=== PATIENT | female | born 1935 | race Caucasian/White ===

== ENCOUNTER 2016-08-20 18:25 | Emergency (ER) | payer BC ==
[2016-08-20 18:39] VITALS: BMI 24.7
[2016-08-20] MEDS ORDERED: morphine CARPU-JECT 4 MG/1 ML DISP.SYRIN IVPUSH ONE ×3 (19:30→21:30)
[2016-08-20] MEDS ORDERED: PANTOPRAZOLE SODIUM 80 MG in SODIUM CHLORIDE 100 ML IVPB SCH (19:30)
[2016-08-20] MEDS ORDERED: PANTOPRAZOLE SODIUM 40 MG in SODIUM CHLORIDE 100 ML IVPB ONE (19:30)
[2016-08-20 19:36] LABS: BASOPHIL 0.8 % (0-2.0); EOSINOPHIL 1.3 % (0-4.5); MCH 29.9 pg (25.7-33.7); MCHC 32.3 g/dl (32.0-36.0); MEAN CELL VOLUME 92.6 fl (80-96); NEUTROPHILS 63.1 % (42.8-82.8); RDW 14.4 % (11.6-15.6); WHITE BLOOD COUNT 8.5 K/mm3 (4.0-10.0)
[2016-08-20] MEDS ORDERED: morphine CARPU-JECT 4 MG/1 ML DISP.SYRIN ONE ×3 (19:37→21:43)
--- NOTE | 2016-08-20 19:37 | PDOC ---
History of Present Illness - General History Source: Patient Exam Limitations: No Limitations - History of Present Illness Initial Comments: 08/20/16 20:30 The patient is a 80 year old female with a significant past medical history of hypertension, HLD, bowel obstruction, hernias, gastritis, coronary artery disease s/p CABG, who presents to the ED with diffuse abdominal pain, abdominal bloating and chest discomfort. The patient states that in last few days that she's been feeling bloating with intermittent abdominal pain in the left upper quadrant. She started noticing dark stools as well. She is not on iron supplements or taking Pepto-Bismol. She started developing some nausea but denies vomiting. Patient states that 30 minutes prior to arrival, she started noticing pain in the left upper chest right at the insertion site of her pectoralis major. Denies any injuries or traumas or increased exertion. Denies shortness of breath. <Rafael Soriano - Last Filed: 08/20/16 23:13> - General History Source: Patient Exam Limitations: No Limitations <Nik Vargas - Last Filed: 08/21/16 02:16> - General Chief Complaint: Chest Pain Stated Complaint: CHEST PAIN SOB Time Seen by Provider: 08/20/16 18:32 Past History <Rafael Soriano - Last Filed: 08/20/16 23:13> - Past Medical History Cardiac Disorders: Yes ([place], STENT X 1 , BYPASS) GI Disorders: Yes (HERNIA) HTN: Yes Hypercholesterolemia: Yes Thyroid Disease: Yes - Surgical History Abdominal Surgery: Yes (hernia.) Cardiac Surgery: Yes Cholecystectomy: Yes - Immunization History Td Vaccination: Yes Immunization Up to Date: Yes - Psycho/Social/Smoking Cessation Hx Anxiety: No Suicidal Ideation: No Smoking Status: No Smoking History: Never smoked Number of Cigarettes Smoked Daily: 0 Hx Alcohol Use: No Drug/Substance Use Hx: No Substance Use Type: None Hx Substance Use Treatment: No <Nik Vargas - Last Filed: 08/21/16 02:16> - Past Medical History Allergies/Adverse Reactions: Allergies Allergy/AdvReac Type Severity Reaction Status Date / Time cortisone [Cortisone] Allergy Elevated Verified 03/31/15 07:45 Blood Pressure erythromycin base Allergy Rash Verified 03/31/15 07:45 [Erythromycin Base] Penicillins Allergy Rash Verified 03/31/15 07:45 Tetanus Vaccines and Toxoid Allergy Verified 03/31/15 07:45 [Tetanus] Home Medications: Ambulatory Orders Atorvastatin Ca [Lipitor] 40 mg PO HS 06/23/13 Levothyroxine [Synthroid -] 150 mcg PO DAILY 06/23/13 Valsartan [Diovan] 80 mg PO DAILY 06/23/13 Metoprolol Succinate [Toprol XL -] 50 mg PO DAILY #0 tab.sr.24h 06/29/13 Fenofibrate Nanocrystallized [Tricor] 48 mg PO DAILY 10/07/13 Aspirin [Ecotrin] 81 mg PO DAILY 03/31/15 Oxycodone HCl/Acetaminophen [Percocet 5/325 -] 1 tab PO Q6H #30 tablet 04/03/15 Review of Systems - Review of Systems Able to Perform ROS?: Yes Comments:: 08/20/16 20:30 GENERAL/CONSTITUTIONAL: No fever or chills. No weakness. HEAD, EYES, EARS, NOSE AND THROAT: No change in vision. No ear pain or discharge. No sore throat. CARDIOVASCULAR: + chest discomfort. No SOB. RESPIRATORY: No cough, wheezing, or hemoptysis. GASTROINTESTINAL: + abdominal pain. + nausea. No vomiting, diarrhea or constipation. GENITOURINARY: No dysuria, frequency, or change in urination. MUSCULOSKELETAL: No joint or muscle swelling or pain. No neck or back pain. SKIN: No rash NEUROLOGIC: No headache, vertigo, loss of consciousness, or change in strength/ sensation. ENDOCRINE: No increased thirst. No abnormal weight change. HEMATOLOGIC/LYMPHATIC: No anemia, easy bleeding, or history of blood clots. ALLERGIC/IMMUNOLOGIC: No hives or skin allergy. <Rafael Soriano - Last Filed: 08/20/16 23:13> *Physical Exam - Vital Signs Last Vital Signs Temp Pulse Resp BP Pulse Ox 98.2 F 70 24 183/78 99 08/20/16 19:12 08/20/16 18:31 08/20/16 18:31 08/20/16 18:31 08/20/16 19:12 - Physical Exam Comments: 08/20/16 20:31 GENERAL: Awake, alert, and fully oriented, in no acute distress HEAD: No signs of trauma EYES: PERRLA, EOMI, sclera anicteric, conjunctiva clear ENT: Auricles normal inspection, hearing grossly normal, nares patent, oropharynx clear without exudates. Moist mucosa NECK: Normal ROM, supple, no lymphadenopathy, JVD, or masses LUNGS: Breath sounds equal, clear to auscultation bilaterally. No wheezes, and no crackles HEART: Regular rate and rhythm, normal S1 and S2, no murmurs, rubs or gallops ABDOMEN: Abdominal distension appreciated. Diffuse abdominal discomfort but left upper quadrant tenderness. No guarding, no rebound. No masses. Dark stools. EXTREMITIES: Normal range of motion, no edema. No clubbing or cyanosis. No cords, erythema, or tenderness NEUROLOGICAL: Cranial nerves II through XII grossly intact. Normal speech, normal gait SKIN: Warm, Dry, normal turgor, no rashes or lesions noted. <Rafael Soriano - Last Filed: 08/20/16 23:13> - Vital Signs Last Vital Signs Temp Pulse Resp BP Pulse Ox 98.2 F 70 24 183/78 99 08/20/16 19:12 08/20/16 18:31 08/20/16 18:31 08/20/16 18:31 08/20/16 19:12 <Nik Vargas - Last Filed: 08/21/16 02:16> Heart Score/ECG Review #1 ECG reviewed & interpreted by me at: 18:40 08/20/16 23:54 NSR 73, Q wave III, TWI V1, V2, no std/jyoti, normal axis, normal intervals, QTC 425 msec <Nik Vargas - Last Filed: 08/21/16 02:16> ED Treatment Course - LABORATORY CBC & Chemistry Diagram: 08/20/16 19:00 08/20/16 20:37 - ADDITIONAL ORDERS Additional order review: Laboratory Results 08/20/16 08/20/16 08/20/16 19:40 19:00 19:00 INR 1.04 PTT (Actin FS) 29.0 Sodium Cancelled Potassium Cancelled Chloride Cancelled Carbon Dioxide Cancelled Anion Gap Cancelled BUN Cancelled Creatinine Cancelled Creat Clearance w eGFR Cancelled Random Glucose Cancelled Calcium Cancelled Magnesium Cancelled Total Bilirubin Cancelled AST Cancelled ALT Cancelled Alkaline Phosphatase Cancelled Creatine Kinase Cancelled Troponin I Cancelled B-Natriuretic Peptide Cancelled Total Protein Cancelled Albumin Cancelled Stool Occult Blood Negative 08/20/16 19:00 RBC 5.15 MCV 92.6 MCHC 32.3 RDW 14.4 Neutrophils % 63.1 Lymphocytes % 26.3 D Monocytes % 8.5 Eosinophils % 1.3 D Basophils % 0.8 - Medications Given in the ED: ED Medications Discontinued Medications Generic Name Dose Route Start Last Admin Trade Name Jes PRN Reason Stop Dose Admin Pantoprazole Sodium 40 mg/ 100 mls @ 200 mls/hr 08/20/16 19:30 08/20/16 19:48 Sodium Chloride IVPB 08/20/16 19:59 200 mls/hr ONCE ONE Administration Morphine Sulfate 4 mg 08/20/16 19:30 08/20/16 19:47 Morphine Injection - IVPUSH 08/20/16 19:31 4 mg ONCE ONE Administration Morphine Sulfate 4 mg 08/20/16 20:21 08/20/16 20:22 Morphine Injection - IVPUSH 08/20/16 20:22 4 mg ONCE ONE Administration <Rafael Soriano - Last Filed: 08/20/16 23:13> - LABORATORY CBC & Chemistry Diagram: 08/20/16 19:00 08/20/16 20:37 - RADIOLOGY Radiology Studies Ordered: Category Date Time Status CHEST X-RAY PORTABLE* [RAD] Stat Radiology 08/20/16 18:33 Taken <Nik Vargas - Last Filed: 08/21/16 02:16> Medical Decision Making - Medical Decision Making 08/20/16 21:[address] Becker (cardio). 08/20/16 22:[address] Becker. 08/20/16 22:[address] Mclaughlin (on-call on for Dr. Morales). 08/20/16 23:13 Paged [facility] for transfer of patient to adult ER. <Rafael Soriano - Last Filed: 08/20/16 23:13> - Critical Care Time Total Critical Care Time (minutes): 45 Critical Care Statement: The care of this patient involved high complexity decision making to prevent further life threatening deterioration of the patient 's condition and/or to evalute & treat vital organ system(s) failure or risk of failure. - Medical Decision Making 08/20/16 19:53 A portion of this note was documented by scribe services under my direction. I have reviewed the details of the note, within reason, and agree with the documentation with the following case summary and management plan written by me. Patient treated in the ED. Nursing notes are reviewed and incorporated into the medical decision-making. Vital signs reviewed. Peripheral IV access obtained by the nurse, laboratory studies are drawn and sent, reviewed and interpreted by myself. Vital Signs Temp Pulse Resp BP Pulse Ox 98.2 F 70 24 183/78 99 08/20/16 19:12 08/20/16 18:31 08/20/16 18:31 08/20/16 18:31 08/20/16 19:12 80 year old female with past medical history of hypertension, HLD, bowel obstruction, hernias, gastritis, coronary artery disease s/p CABG presents to the emergency department for diffuse abdominal pain, abdominal bloating and chest discomfort. The patient reports in last several days that she's been feeling bloating with intermittent abdominal pain in left upper quadrant. She started noticed dark stools. She is not on iron supplements or taking Pepto- Bismol. She started developing some nausea but denies vomiting. 30 minutes prior to arrival, patient started noticing pain in the left upper chest right at the insertion site of her pectoris major. Denies any injuries or traumas or increased exertion. Denies shortness of breath. The patient's chest pain is very unusual for cardiac disease. She is quite tender at her left pectoralis major toward the insertion site and I suspect that this is likely muscle skeletal. We'll send a troponin and obtain EKG. If workup is negative, the patient can be cleared from a cardiac perspective. I am more concerned about the patient's abdominal pain and bloating. She has dark stools on my exam is is concerning for upper GI bleed. Protonix bolus and drip was initiated. We'll obtain a CAT scan abdomen pelvis to rule out perforated ulcer. Patient should likely be admitted to the hospital for further evaluation. 08/20/16 23:53 CBC, BMP 08/20/16 19:00 08/20/16 20:37 CMP Sodium 142 mmol/L (136-145) 08/20/16 20:37 Potassium 4.1 mmol/L (3.5-5.1) 08/20/16 20:37 Chloride 112 mmol/L (98-107) H 08/20/16 20:37 Carbon Dioxide 22 mmol/L (21-32) 08/20/16 20:37 Anion Gap 8 (8-16) 08/20/16 20:37 BUN 30 mg/dL (7-18) H D 08/20/16 20:37 Creatinine 0.8 mg/dL (0.55-1.02) D 08/20/16 20:37 Creat Clearance w eGFR > 60 (>60) 08/20/16 20:37 Random Glucose 99 mg/dL (74-106) 08/20/16 20:37 Calcium 9.4 mg/dL (8.5-10.1) 08/20/16 20:37 Magnesium 2.0 mg/dL (1.8-2.4) 08/20/16 20:37 Total Bilirubin 0.4 mg/dL (0.2-1.0) D 08/20/16 20:37 AST 13 U/L (15-37) L D 08/20/16 20:37 ALT 24 U/L (12-78) 08/20/16 20:37 Alkaline Phosphatase 71 U/L (45-117) D 08/20/16 20:37 Creatine Kinase 75 IU/L (26-192) 08/20/16 20:37 Troponin I 2.28 ng/ml (0.00-0.05) H* 08/20/16 20:37 B-Natriuretic Peptide 366.68 pg/ml (5-450) 08/20/16 20:37 Total Protein 6.9 g/dl (6.4-8.2) D 08/20/16 20:37 Albumin 4.2 g/dl (3.4-5.0) D 08/20/16 20:37 Negative guiac. Chest xray reviewed. Atelectasis changes. CT abdomen and pelvis reviewed. No acute findings. Interestingly, the patient's troponin is 2.3 suggestive of an NSTEMI. It may be perhaps that the abdominal pain is a referred pain. Case was discussed with pick up Dr. Regalado (partner of Kathy), agrees with plan to aspirin and heparin. ASA and heparin bolus and drip ordered (pt already took baby asa this morning). Case discussed with Dr. Mclaughlin. Given that the patient has dark stools, abdominal bloating, and that the patient is being heparinized and the upcoming weekend with potential no immediate GI in house in case if the patient bleeds, Dr. Mclaughlin requests transfer to higher level of care. Case was discussed with Dr. Ordonez (cards fellow) at [facility] who accepts the patient under Dr. Antoine (attending) to the [facility] ER. 08/21/16 02:15 Patient's ECG was downloaded at [facility] (which was her former last name). However, the patient's ECG was not corrected and downloaded as such. Will contact the medical diagnostic radiographer regarding this matter. <Nik Vargas - Last Filed: 08/21/16 02:16> *DC/Admit/Observation/Transfer - Attestations Scribe Attestion: 08/20/16 20:31 Documentation prepared by Rafael Soriano, acting as biomedical scientist for Nik Vargas MD, MD. <Rafael Soriano - Last Filed: 08/20/16 23:13> - Transfer to Acute Care Facility Receiving Facility: [facility]. Accepting Physician:: Dr. Antoine <Nik Vargas - Last Filed: 08/21/16 02:16> Diagnosis at time of Disposition: NSTEMI (non-ST elevated myocardial infarction) - Discharge Dispostion Disposition: TRANSFER ACUTE CARE/OTHER HOSP Condition at time of disposition: Stable
[2016-08-20] MEDS ORDERED: PANTOPRAZOLE SODIUM 100 ML IVPB ONE (19:38)
[2016-08-20] MEDS ORDERED: PANTOPRAZOLE SODIUM 40 MG VIAL ONE (19:38)
[2016-08-20 19:57] LABS: INR 1.04 (0.82-1.09); PROTHROMBIN TIME (PATIENT) 11.4 SEC (9.98-11.88)
[2016-08-20 20:37] LABS: MEAN PLT VOLUME 9.5 fl (7.5-11.1); PLATELET COMMENT2 NO CLOTTING DETECTED; PLATELET COUNT 160 K/MM3 (134-434); PLATELET ESTIMATE ADEQUATE (NORMAL)
[2016-08-20] MEDS ORDERED: SODIUM CHLORIDE 500 ML IV STA (20:52)
[2016-08-20 21:09] LABS: ALBUMIN 4.2 g/dl (3.4-5.0); ANION GAP 8 (8-16); CALCIUM 9.4 mg/dL (8.5-10.1); CO2 22 mmol/L (21-32); CREATININE 0.8 mg/dL (0.55-1.02); GLUCOSE,RANDOM 99 mg/dL (74-106); SGOT/AST 13 U/L (15-37); SGPT/ALT 24 U/L (12-78)
[2016-08-20 21:24] LABS: ALK PHOS 71 U/L (45-117); BILIRUBIN,TOTAL 0.4 mg/dL (0.2-1.0); TOT PROT 6.9 g/dl (6.4-8.2)
[2016-08-20 21:27] LABS: TROPONIN I 2.28 ng/ml (0.00-0.05)
[2016-08-20] MEDS ORDERED: HEPARIN NA (PORCINE) 5,000 UNITS/ML 1ML VIAL IVPUSH PRN (23:34)
[2016-08-20] MEDS ORDERED: ASPIRIN 81 MG CHEWABLE TABLETS PO ONE (23:34)
[2016-08-20] MEDS ORDERED: HEPARIN NA (PORCINE) 5,000 UNITS/ML 1ML VIAL IVPUSH ONE (23:35)
[2016-08-20] MEDS ORDERED: HEPARIN - 25,000 UNIT in SODIUM CHLORIDE 495 ML IV SCH (23:45)
[2016-08-21] MEDS ORDERED: HEPARIN INFUSION - 500 ML IVPB ONE (00:01)
[2016-08-21] MEDS ORDERED: morphine CARPU-JECT 4 MG/1 ML DISP.SYRIN IVPUSH ONE (00:03)
[2016-08-21] MEDS ORDERED: morphine CARPU-JECT 4 MG/1 ML DISP.SYRIN ONE (00:08)
[2016-08-21 00:41] VITALS: BP 142/83; PULSE 78; TEMP 98.3
--- NOTE | 2016-08-21 16:21 | EKG ---
Test Reason : Blood Pressure : / mmHG Vent. Rate : 073 BPM Atrial Rate : 073 BPM P-R Int : 154 ms QRS Dur : 074 ms QT Int : 386 ms P-R-T Axes : 036 -12 047 degrees QTc Int : 425 ms POOR DATA QUALITY, INTERPRETATION MAY BE ADVERSELY AFFECTED SINUS RHYTHM WITH MARKED SINUS ARRHYTHMIA LOW VOLTAGE QRS CANNOT RULE OUT ANTERIOR INFARCT (CITED ON OR BEFORE 20-AUG-2016) ABNORMAL ECG WHEN COMPARED WITH ECG OF 31-MAR-2015 09:09, PREMATURE VENTRICULAR COMPLEXES ARE NO LONGER PRESENT Confirmed by EDMAR VALERIO MD ([id number]) on 08/21/2016 4:21:21 PM Referred By: Confirmed By:EDMAR VALERIO MD
== END 2016-08-21 00:21 | disposition short-term general hospital (02) ==
LOC: JER 18:25
PROC: 3E0337Z Introduction of Electrolytic and Water Balance Substance into Peripheral Vein, Percutaneous Approach (ICD-10-PCS; principal; 2016-08-20)
PROC: 3E033GC Introduction of Other Therapeutic Substance into Peripheral Vein, Percutaneous Approach (ICD-10-PCS; 2016-08-20)
PROC: 3E033NZ Introduction of Analgesics, Hypnotics, Sedatives into Peripheral Vein, Percutaneous Approach (ICD-10-PCS; 2016-08-20)
DX: I21.4 Non-ST elevation (NSTEMI) myocardial infarction (principal); I25.2 Old myocardial infarction; I11.9 Hypertensive heart disease without heart failure; Z95.1 Presence of aortocoronary bypass graft; Z95.5 Presence of coronary angioplasty implant and graft; E78.00 Pure hypercholesterolemia, unspecified; E03.9 Hypothyroidism, unspecified
CPT/HCPCS: 36415; 71010-TC; 74176-TC; 80053; 82272; 82550; 83735; 83880; 84484; 85025; 85610; 85730; 93005; 93010; 96361; 96365; 96375; 99285-25

== ENCOUNTER 2017-02-20 07:12 | Emergency (ER) | payer BC ==
[2017-02-20 07:20] VITALS: TEMP 97.8; BMI 24.7
[2017-02-20] MEDS ORDERED: OXYCODONE/APAP 5/325MG COMBO TABLET PO ONE (09:01)
[2017-02-20] MEDS ORDERED: OXYCODONE/APAP 5/325MG COMBO TABLET ONE (09:06)
--- NOTE | 2017-02-20 09:20 | PDOC ---
Attending Attestation - Resident Resident Name: Jw Flores - ED Attending Attestation I have performed the following: I have examined & evaluated the patient, The case was reviewed & discussed with the resident, I agree w/resident's findings & plan, Exceptions are as noted - HPI HPI: 02/20/17 09:17 81 yo female with recent admit for ACS ending with two stents a few months ago, now taking plavix. Presents with red, swollen, painful right wrist. - Physicial Exam PE: 02/20/17 09:19 Tendonitis vs cellulitis - Medical Decision Making 02/20/17 09:19 Labs and X-Ray, Pain control
[2017-02-20 09:46] LABS: BASOPHIL 0.6 % (0-2.0); EOSINOPHIL 0.9 % (0-4.5); MCH 30.4 pg (25.7-33.7); MCHC 33.1 g/dl (32.0-36.0); MEAN CELL VOLUME 91.7 fl (80-96); MEAN PLT VOLUME 7.1 fl (7.5-11.1); NEUTROPHILS 66.9 % (42.8-82.8); PLATELET COUNT 217 K/MM3 (134-434); RDW 14.5 % (11.6-15.6); WHITE BLOOD COUNT 8.5 K/mm3 (4.0-10.0)
--- NOTE | 2017-02-20 10:00 | PDOC ---
History of Present Illness - General Chief Complaint: Redness To Affected Area Stated Complaint: WRIST PAIN Time Seen by Provider: 02/20/17 07:56 - History of Present Illness Initial Comments: 02/20/17 09:55 81F with history of MD 6 months ago s/p stents and HTN here today complaining of pain in her right wrist. The pain started 48 hours ago, got better then started getting worse 24 hours ago. The pain is located at the dorsal aspect of her right wrist and has associated erythema, swelling and warmth. She says the pain is worse with movement but is able to make a fist. She denies nausea, vomiting, fevers and chills. She denies constipation, diarrhea and dysuria. Past History - Past Medical History Allergies/Adverse Reactions: Allergies Allergy/AdvReac Type Severity Reaction Status Date / Time cortisone [Cortisone] Allergy Elevated Verified 02/20/17 07:20 Blood Pressure erythromycin base Allergy Rash Verified 02/20/17 07:20 [Erythromycin Base] Penicillins Allergy Rash Verified 02/20/17 07:20 Tetanus Vaccines and Toxoid Allergy Verified 02/20/17 07:20 [Tetanus] Home Medications: Ambulatory Orders Atorvastatin Ca [Lipitor] 80 mg PO HS 02/20/17 Clopidogrel Bisulfate [Plavix -] 75 mg PO DAILY 02/20/17 Fenofibrate Nanocrystallized [Tricor] 48 mg PO DAILY 02/20/17 Levothyroxine [Synthroid -] 150 mcg PO DAILY 02/20/17 Metoprolol Tartrate 100 mg PO DAILY 02/20/17 Ondansetron [Ondansetron Odt] 8 mg PO BID PRN #10 tab.rapdis 02/20/17 Oxycodone HCl/Acetaminophen [Percocet 5-325 mg Tablet] 1 tab PO Q6H PRN #10 tablet MDD 4 02/20/17 Sulfamethoxazole/Trimethoprim [Bactrim Ds -] 1 tab PO BID #20 tablet 02/20/17 Cardiac Disorders: Yes ([place], STENT X 1 , BYPASS) GI Disorders: Yes (HERNIA) HTN: Yes Hypercholesterolemia: Yes Thyroid Disease: Yes - Surgical History Abdominal Surgery: Yes (hernia.) Cardiac Surgery: Yes (STENTS) Cholecystectomy: Yes - Immunization History Td Vaccination: Yes Immunization Up to Date: Yes - Psycho/Social/Smoking Cessation Hx Anxiety: No Suicidal Ideation: No Smoking Status: No Smoking History: Never smoked Number of Cigarettes Smoked Daily: 0 Hx Alcohol Use: No Drug/Substance Use Hx: No Substance Use Type: None Hx Substance Use Treatment: No *Physical Exam - Vital Signs Last Vital Signs Temp Pulse Resp BP Pulse Ox 97.8 F 71 18 169/59 97 02/20/17 07:17 02/20/17 07:17 02/20/17 07:17 02/20/17 07:17 02/20/17 07:17 - Physical Exam Comments: 02/20/17 10:42 Gen: Well nourished, in moderate distress, holding her right arm against her stomach CV: RRR, no murmurs rubs or gallops Lungs: Clear to auscultation bilaterally, normal work of breathing Right wrist: 4x4 cm area of swelling erythema, and warmth on dorsal aspect of wrist. Able to close fist and extend fingers. Able to flex wrist. Unable to fully extend wrist pain secondary to pain. Neuro: Alert, oriented, no focal deficits HEENT: Atraumatic normocephalic ED Treatment Course - LABORATORY CBC & Chemistry Diagram: 02/20/17 08:12 02/20/17 08:12 - Medications Given in the ED: ED Medications Discontinued Medications Generic Name Dose Route Start Last Admin Trade Name Freq PRN Reason Stop Dose Admin Oxycodone/Acetaminophen 1 combo 02/20/17 09:01 02/20/17 09:16 Percocet 5/325 - PO 02/20/17 09:02 1 combo ONCE ONE Administration Medical Decision Making - Medical Decision Making 02/20/17 11:28 Patient is a 81F with history of MD 6months ago, s/p stenting, here today complaining of wrist pain. Vital signs stable. Differential diagnosis includes, but is not limited to: cellulitis, tendonitis, and fracture. CBC and CMP normal. CRP elevated. Believe this to be cellulitis. Discharged with bactrim for 10 days, percocet and zofran for pain and nausea. *DC/Admit/Observation/Transfer Diagnosis at time of Disposition: Cellulitis Qualifiers: Site of cellulitis: extremity Site of cellulitis of extremity: upper extremity Laterality: right Qualified Code(s): L03.113 - Cellulitis of right upper limb - Discharge Dispostion Disposition: HOME Condition at time of disposition: Good Admit: No - Prescriptions Prescriptions: Sulfamethoxazole/Trimethoprim [Bactrim Ds -] 1 tab PO BID #20 tablet Oxycodone HCl/Acetaminophen [Percocet 5-325 mg Tablet] 1 tab PO Q6H PRN #10 tablet MDD 4 PRN Reason: Pain Ondansetron [Ondansetron Odt] 8 mg PO BID PRN #10 tab.rapdis PRN Reason: Nausea - Referrals Referrals: Jeremi Morales MD [Primary Care Provider] - Jeremi Rodrigues MD [Staff Physician] - - Patient Instructions Printed Discharge Instructions: DI for Cellulitis -- Adult Additional Instructions: Please follow up with your PCP and Orthopedics (Dr Rodrigues) as an outpatient. - Attestations Physician Attestion: 02/20/17 10:56 I, Dr. Jw Flores, attest that this document has been prepared under my direction and personally reviewed by me in its entirety. I further attest, that it accurately reflects all work, treatment, procedures and medical decision -making performed by me.
[2017-02-20 10:11] LABS: ALBUMIN 3.9 g/dl (3.4-5.0); ANION GAP 7 (8-16); CALCIUM 9.9 mg/dL (8.5-10.1); CO2 24 mmol/L (21-32); CREATININE 0.8 mg/dL (0.55-1.02); GLUCOSE,RANDOM 94 mg/dL (74-106); SGOT/AST 12 U/L (15-37); SGPT/ALT 22 U/L (12-78)
[2017-02-20 10:13] LABS: ALK PHOS 62 U/L (45-117); BILIRUBIN,TOTAL 0.5 mg/dL (0.2-1.0); TOT PROT 6.3 g/dl (6.4-8.2)
[2017-02-20 10:15] LABS: C-REACTIVE PROTEIN 1.6 MG/DL (0.00-0.3)
[2017-02-20 11:25] VITALS: BP 154/70; PULSE 75
[2017-02-20 11:50] LABS: ERYTHROCYTE SEDIMENTATION RATE 5 mm/hr (0-30)
[2017-02-20] MEDS ORDERED: ATORVASTATIN CA 80 MG TABLET (FP) PO SCH (22:00)
[2017-02-21] MEDS ORDERED: PATIENT'S OWN MEDICATION (NON-FORMULARY) (Metoprolol Tartrate [Metoprolol Tartrate] 100 MG PO SCH (10:00)
[2017-02-21] MEDS ORDERED: FENOFIBRATE NANOCRYSTALLIZED 48 MG PO SCH (10:00)
[2017-02-21] MEDS ORDERED: LEVOTHYROXINE NA 150 MCG TABLET PO SCH (10:00)
[2017-02-21] MEDS ORDERED: CLOPIDOGREL BISULFATE 75 MG TABLET (FP) PO SCH (10:00)
== END 2017-02-20 11:23 | disposition home or self-care (01) ==
LOC: JER 07:12
DX: L03.113 Cellulitis of right upper limb (principal); I25.2 Old myocardial infarction; I25.10 Atherosclerotic heart disease of native coronary artery without angina pectoris; I10 Essential (primary) hypertension; Z95.5 Presence of coronary angioplasty implant and graft; Z79.01 Long term (current) use of anticoagulants; E78.00 Pure hypercholesterolemia, unspecified; E03.9 Hypothyroidism, unspecified
CPT/HCPCS: 36415; 73090-TC-RT; 73110-TC-RT; 80053; 85025; 85651; 86140; 99282-25

== ENCOUNTER 2018-05-29 06:23 | Emergency (ER) | payer BC ==
[2018-05-29 06:46] VITALS: BMI 23.3
--- NOTE | 2018-05-29 06:56 | PDOC ---
History of Present Illness - General Chief Complaint: Chest Pain Stated Complaint: INJURY Time Seen by Provider: 05/29/18 06:56 Past History - Past Medical History Allergies/Adverse Reactions: Allergies Allergy/AdvReac Type Severity Reaction Status Date / Time cortisone [Cortisone] Allergy Elevated Verified 05/29/18 06:50 Blood Pressure erythromycin base Allergy Rash Verified 05/29/18 06:50 [Erythromycin Base] Penicillins Allergy Rash Verified 05/29/18 06:50 Tetanus Vaccines and Toxoid Allergy Verified 05/29/18 06:50 [Tetanus] Home Medications: Ambulatory Orders Atorvastatin Ca [Lipitor] 80 mg PO HS 05/29/18 Fenofibrate Nanocrystallized [Fenofibrate] 48 mg PO DAILY 05/29/18 Levothyroxine [Synthroid -] 150 mcg PO DAILY 05/29/18 Metoprolol Succinate [Toprol Xl -] 100 mg PO DAILY 05/29/18 Valsartan [Diovan] 80 mg PO DAILY 05/29/18 Cardiac Disorders: Yes ([place], STENT X 1 , BYPASS) COPD: No GI Disorders: Yes (HERNIA) HTN: Yes Hypercholesterolemia: Yes Thyroid Disease: Yes - Surgical History Abdominal Surgery: Yes (hernia.) Cardiac Surgery: Yes (STENTS) Cholecystectomy: Yes - Immunization History Td Vaccination: Yes Immunization Up to Date: Yes - Suicide/Smoking/Psychosocial Hx Smoking Status: No Smoking History: Never smoked Number of Cigarettes Smoked Daily: 0 Hx Alcohol Use: No Drug/Substance Use Hx: No Substance Use Type: None Hx Substance Use Treatment: No *Physical Exam - Vital Signs Last Vital Signs Temp Pulse Resp BP Pulse Ox 97.5 F L 75 18 148/64 100 05/29/18 06:42 05/29/18 06:42 05/29/18 06:42 05/29/18 06:42 05/29/18 06:42
--- NOTE | 2018-05-29 06:59 | PDOC ---
History of Present Illness - General Chief Complaint: Chest Pain Stated Complaint: INJURY Time Seen by Provider: 05/29/18 06:56 - History of Present Illness Initial Comments: 05/29/18 06:57 Ms. Moore is an 82 yo female w/ pmh of HTN, HLD, gastritis, hernias, CAD s/p CABG (s/p 1 year course of plavix ended in August of this year) who presents for evaluation of 3 day history of left sided chest pain she says had sudden onset accompanied by a loud "pop" that began when reaching for something 3 day ago. She reports it is exacerbated by movement of the arm and pressure to the area. Denies any difficulty breathing or radiation. The patient denies shortness of breath, headache and dizziness. Denies fever, chills, nausea, vomit, diarrhea and constipation. Denies dysuria, frequency, urgency and hematuria. Past History - Past Medical History Allergies/Adverse Reactions: Allergies Allergy/AdvReac Type Severity Reaction Status Date / Time cortisone [Cortisone] Allergy Elevated Verified 05/29/18 06:50 Blood Pressure erythromycin base Allergy Rash Verified 05/29/18 06:50 [Erythromycin Base] Penicillins Allergy Rash Verified 05/29/18 06:50 Tetanus Vaccines and Toxoid Allergy Verified 05/29/18 06:50 [Tetanus] Home Medications: Ambulatory Orders Atorvastatin Ca [Lipitor] 80 mg PO HS 05/29/18 Fenofibrate Nanocrystallized [Fenofibrate] 48 mg PO DAILY 05/29/18 Levothyroxine [Synthroid -] 150 mcg PO DAILY 05/29/18 Metoprolol Succinate [Toprol Xl -] 100 mg PO DAILY 05/29/18 Valsartan [Diovan] 80 mg PO DAILY 05/29/18 Cardiac Disorders: Yes (AK, STENT X 1 , BYPASS) COPD: No GI Disorders: Yes (HERNIA) HTN: Yes Hypercholesterolemia: Yes Thyroid Disease: Yes - Surgical History Abdominal Surgery: Yes (hernia.) Cardiac Surgery: Yes (STENTS) Cholecystectomy: Yes - Immunization History Td Vaccination: Yes Immunization Up to Date: Yes - Suicide/Smoking/Psychosocial Hx Smoking Status: No Smoking History: Never smoked Number of Cigarettes Smoked Daily: 0 Hx Alcohol Use: No Drug/Substance Use Hx: No Substance Use Type: None Hx Substance Use Treatment: No Review of Systems - Review of Systems Comments:: 05/29/18 06:59 GENERAL/CONSTITUTIONAL: No fever or chills. No weakness. HEAD, EYES, EARS, NOSE AND THROAT: No change in vision. No ear pain or discharge. No sore throat. CARDIOVASCULAR: +Chest pain as described. No shortness of breath RESPIRATORY: No cough, wheezing, or hemoptysis. GASTROINTESTINAL: No nausea, vomiting, diarrhea or constipation. GENITOURINARY: No dysuria, frequency, or change in urination. MUSCULOSKELETAL: No joint or muscle swelling or pain. No neck or back pain. SKIN: No rash NEUROLOGIC: No headache, vertigo, loss of consciousness, or change in strength/ sensation. ENDOCRINE: No increased thirst. No abnormal weight change HEMATOLOGIC/LYMPHATIC: No anemia, easy bleeding, or history of blood clots. ALLERGIC/IMMUNOLOGIC: No hives or skin allergy. *Physical Exam - Vital Signs Last Vital Signs Temp Pulse Resp BP Pulse Ox 97.5 F L 75 18 148/64 100 05/29/18 06:42 05/29/18 06:42 05/29/18 06:42 05/29/18 06:42 05/29/18 06:42 - Physical Exam Comments: 05/29/18 06:59 GENERAL: Awake, alert, and fully oriented, in no acute distress HEAD: No signs of trauma, normocephalic, atraumatic EYES: PERRLA, EOMI, sclera anicteric, conjunctiva clear ENT: Auricles normal inspection, hearing grossly normal, nares patent, oropharynx clear without exudates. Moist mucosa NECK: Normal ROM, supple, no lymphadenopathy, JVD, or masses LUNGS: +Point tenderness over left chest. No distress, speaks full sentences, clear to auscultation bilaterally HEART: Regular rate and rhythm, normal S1 and S2, no murmurs, rubs or gallops, peripheral pulses normal and equal bilaterally. ABDOMEN: Soft, nontender, normoactive bowel sounds. No guarding, no rebound. No masses EXTREMITIES: Normal inspection, Normal range of motion, no edema. No clubbing or cyanosis. NEUROLOGICAL: Cranial nerves II through XII grossly intact. Normal speech, normal gait, no focal sensorimotor deficits SKIN: Warm, Dry, normal turgor, no rashes or lesions noted. ED Treatment Course - LABORATORY CBC & Chemistry Diagram: 05/29/18 07:25 05/29/18 07:25 Medical Decision Making - Medical Decision Making 05/29/18 07:32 Ms. Moore is an 82 yo female w/ pmh as described who presents for evaluation of left sided chest point tenderness as described concerning for MSK process vs. ACS. Will evaluate w/ troponin, ekg, and XR as well as normal labs. 05/29/18 09:52 Labs grossly wnl as below. EKG regular rate, regular rhythm, left axis deviation , normal interval, no ST elevations or depressions. Grossly unconcerning EKG. 05/29/18 09:54 Tylenol unsuccessful in controlling pain. Oxycodone 5mg given 05/29/18 10:02 Patient reporting improvement of symptoms w/ above treatment. CXR negative. Success MSK process as origin of pain. Discharging patient w/ Rx for Percocet for pain control. Patient will f/u w/ PCP for further evaluation. *DC/Admit/Observation/Transfer Diagnosis at time of Disposition: Chest pain Qualifiers: Chest pain type: unspecified Qualified Code(s): R07.9 - Chest pain, unspecified - Discharge Dispostion Disposition: HOME - Referrals Referrals: Jeremi Morales MD [Primary Care Provider] - - Patient Instructions Printed Discharge Instructions: DI for Atypical Chest Pain Additional Instructions: You were evaluated today in the ER for your chest pain with no concerning findings. We gave you a prescription for percocet for further pain relief. Please take all medications as described. Follow-up with primary care provider in 1-2 days for further evaluation of your pain. Return to ER if any increase in pain, fever, chills, or other concerning symptoms. - Post Discharge Activity
[2018-05-29] MEDS ORDERED: ACETAMINOPHEN 325 MG TABLET (FP) PO ONE (07:15)
--- NOTE | 2018-05-29 07:34 | PDOC ---
Attending Attestation - Resident Resident Name: José Rodriguez - ED Attending Attestation I have performed the following: I have examined & evaluated the patient, The case was reviewed & discussed with the resident, I agree w/resident's findings & plan, Exceptions are as noted - HPI HPI: 05/29/18 07:28 82 F with h/o HTN, HLD, CAD/IA presenting to ED with sudden onset L sided chest pain 3 days ago. Pt states she was reaching for something with her L arm extended when she felt a sudden pop under her L breast. She denies any falls or trauma to the area. However, since then, she has had persistent pain. It is worse with movement of her L arm and direct palpation of the area. Denies SOB. Pain is not exertional or pleuritic. Pt denies any swelling in her legs. No recent travel/immobilization. - Physicial Exam PE: 05/29/18 07:31 "GENERAL: Awake, alert, and fully oriented, in no acute distress. HEAD: No signs of trauma EYES: PERRLA, EOMI, sclera anicteric, conjunctiva clear ENT: Auricles normal inspection, hearing grossly normal, nares patent, oropharynx clear without exudates. Moist mucosa NECK: Nontender, no stepoffs, Normal ROM, supple, no lymphadenopathy, JVD, or masses CHEST: + Exquisite TTP over L 4th/5th rib, no crepitus LUNGS: Breath sounds equal, clear to auscultation bilaterally. No wheezes, and no crackles HEART: Regular rate and rhythm, normal S1 and S2, no murmurs, rubs or gallops ABDOMEN: Soft, nontender, normoactive bowel sounds. No guarding, no rebound. No masses EXTREMITIES: Normal range of motion, no edema. No clubbing or cyanosis. No cords, erythema, or tenderness NEUROLOGICAL: Cranial nerves II through XII intact. 5/5 strength and sensation in all extremities, Normal speech, normal gait, normal cerebellar function SKIN: Warm, Dry, normal turgor, no rashes or lesions noted. - Medical Decision Making 05/29/18 07:33 82 F with L sided chest wall pain, reproducible with palpation. Likely msk in etiology given sudden pop while pt extended her L arm. However, will r/o ACS given h/o IA. Also consider PTX, though breath sounds equal on exam. Dissection unlikely as pt has equal pulses, no tearing chest pain. - Labs, trop - CXR - Pain control 05/29/18 10:02 Labs wnl CXR clear on my read Pt is well appearing, with normal vitals. Clinically stable for DC at this time. I discussed the physical exam findings, ancillary test results and final diagnoses with the patient. I answered all of the patient's questions. The patient was satisfied with the care received and felt comfortable with the discharge plan and treatment plan. The patient agrees to follow up with the primary care physician within 24-72 hours.
[2018-05-29] MEDS ORDERED: ACETAMINOPHEN 325 MG TABLET (FP) ONE (07:41)
[2018-05-29 07:42] LABS: BASO % 0.9 % (0-2.0); EOS % 0.8 % (0-4.5); HEMATOCRIT 41.4 % (32.4-45.2); HEMOGLOBIN 13.9 GM/dL (10.7-15.3); LYMPH % 20.4 % (8-40); MCH 30.4 pg (25.7-33.7); MCHC 33.5 g/dl (32.0-36.0); MEAN CELL VOLUME 90.8 fl (80-96); MEAN PLT VOLUME 6.9 fl (7.5-11.1); MONO % 8.9 % (3.8-10.2); PLATELET COUNT 238 K/MM3 (134-434); RBC 4.56 M/mm3 (3.60-5.2); RDW 14.8 % (11.6-15.6); WHITE BLOOD COUNT 8.9 K/mm3 (4.0-10.0)
[2018-05-29 08:12] LABS: ALBUMIN 3.8 g/dl (3.4-5.0); ALK PHOS 53 U/L (45-117); ANION GAP 6 MMOL/L (8-16); BILIRUBIN,TOTAL 0.5 mg/dL (0.2-1); BLOOD UREA NITROGEN 23 mg/dL (7-18); CHLORIDE 107 mmol/L (98-107); CO2 27 mmol/L (21-32); CREATININE 0.8 mg/dL (0.55-1.3); GLUCOSE,RANDOM 99 mg/dL (74-106); POTASSIUM 4.3 mmol/L (3.5-5.1); SGOT/AST 16 U/L (15-37); SGPT/ALT 20 U/L (13-61); SODIUM 140 mmol/L (136-145); TOT PROT 6.3 g/dl (6.4-8.2)
[2018-05-29] MEDS ORDERED: oxyCODONE HCL 5 MG TABLET PO ONE (09:22)
[2018-05-29 10:45] VITALS: BP 115/62; PULSE 65; TEMP 97.6
--- NOTE | 2018-05-29 21:25 | EKG ---
Test Reason : Blood Pressure : / mmHG Vent. Rate : 075 BPM Atrial Rate : 075 BPM P-R Int : 162 ms QRS Dur : 080 ms QT Int : 390 ms P-R-T Axes : 001 -39 070 degrees QTc Int : 435 ms SINUS RHYTHM WITH FREQUENT PREMATURE VENTRICULAR COMPLEXES LEFT AXIS DEVIATION LOW VOLTAGE QRS CANNOT RULE OUT ANTERIOR INFARCT (CITED ON OR BEFORE 20-AUG-2016) ABNORMAL ECG WHEN COMPARED WITH ECG OF 20-AUG-2016 18:36, PREMATURE VENTRICULAR COMPLEXES ARE NOW PRESENT Confirmed by ODELL ORTIZ MD ([id number]) on 05/29/2018 9:25:20 PM Referred By: Confirmed By:ODELL ORTIZ MD
== END 2018-05-29 10:20 | disposition home or self-care (01) ==
LOC: JER 06:23
DX: R07.89 Other chest pain (principal); I25.10 Atherosclerotic heart disease of native coronary artery without angina pectoris; I10 Essential (primary) hypertension; Z95.1 Presence of aortocoronary bypass graft; Z95.5 Presence of coronary angioplasty implant and graft; I25.2 Old myocardial infarction; E78.5 Hyperlipidemia, unspecified; E78.00 Pure hypercholesterolemia, unspecified; E03.9 Hypothyroidism, unspecified
CPT/HCPCS: 36415; 71046-TC-FY; 80053; 84484; 85025; 93005; 93010; 99283-25

== ENCOUNTER 2019-03-29 11:45 | Emergency (ER) | payer BC ==
[2019-03-29 12:28] VITALS: BP 162/75; PULSE 65; TEMP 97.9; BMI 21.9
--- NOTE | 2019-03-29 14:00 | PDOC ---
History of Present Illness - General Stated Complaint: POSITIVE CT SCAN Time Seen by Provider: 03/29/19 13:10 History Source: Patient Exam Limitations: No Limitations Past History - Travel Traveled outside of the country in the last 30 days: No Close contact w/someone who was outside of country & ill: No - Past Medical History Allergies/Adverse Reactions: Allergies Allergy/AdvReac Type Severity Reaction Status Date / Time cortisone [Cortisone] Allergy Elevated Verified 03/29/19 12:24 Blood Pressure erythromycin base Allergy Rash Verified 03/29/19 12:24 [Erythromycin Base] Penicillins Allergy Rash Verified 03/29/19 12:24 Tetanus Vaccines and Toxoid Allergy Verified 03/29/19 12:24 [Tetanus] Home Medications: Ambulatory Orders Atorvastatin Ca [Lipitor] 80 mg PO HS 05/29/18 Fenofibrate Nanocrystallized [Fenofibrate] 48 mg PO DAILY 05/29/18 Levothyroxine [Synthroid -] 150 mcg PO DAILY 05/29/18 Metoprolol Succinate [Toprol Xl -] 100 mg PO DAILY 05/29/18 Oxycodone HCl/Acetaminophen [Percocet 5-325 mg Tablet] 1 tab PO Q6H PRN #12 tablet MDD 4 tabs 05/29/18 Valsartan [Diovan] 80 mg PO DAILY 05/29/18 Naproxen 250 mg PO BID #30 tablet 03/29/19 Cardiac Disorders: Yes (ME, STENT X 1 , BYPASS) COPD: No GI Disorders: Yes (HERNIA) HTN: Yes Hypercholesterolemia: Yes Thyroid Disease: Yes - Surgical History Abdominal Surgery: Yes (hernia.) Cardiac Surgery: Yes (STENTS) Cholecystectomy: Yes - Immunization History Td Vaccination: Yes Immunization Up to Date: Yes - Suicide/Smoking/Psychosocial Hx Smoking Status: No Smoking History: Never smoked Number of Cigarettes Smoked Daily: 0 Information on smoking cessation initiated: No Hx Alcohol Use: No Drug/Substance Use Hx: No Substance Use Type: None Hx Substance Use Treatment: No Review of Systems - Review of Systems Able to Perform ROS?: Yes Comments:: 03/29/19 14:01 CONSTITUTIONAL: Absent: fever, chills, diaphoresis, generalized weakness, malaise, loss of appetite HEENT: Absent: rhinorrhea, nasal congestion, throat pain, throat swelling, difficulty swallowing, mouth swelling, ear pain, eye pain, visual Changes CARDIOVASCULAR: Absent: chest pain, loss of consciousness, palpitations, irregular heart rate, peripheral edema RESPIRATORY: Absent: cough, shortness of breath, dyspnea with exertion, orthopnea, wheezing, stridor, hemoptysis GASTROINTESTINAL: Absent: abdominal pain, abdominal distension, nausea, vomiting, diarrhea, constipation, melena, hematochezia GENITOURINARY: Absent: dysuria, frequency, urgency, hesitancy, hematuria, flank pain, genital pain MUSCULOSKELETAL: Present: R leg pain Absent: myalgia, arthralgia, joint swelling SKIN: Absent: rash, itching, pallor HEMATOLOGIC/IMMUNOLOGIC: Absent: easy bleeding, easy bruising, lymphadenopathy, frequent infections ENDOCRINE: Absent: unexplained weight gain, unexplained weight loss, heat intolerance, cold intolerance NEUROLOGIC: Absent: headache, focal weakness or paresthesias, dizziness, unsteady gait, seizure, mental status changes, bladder or bowel incontinence PSYCHIATRIC: Absent: anxiety, depression, suicidal or homicidal ideation, hallucinations. Is the patient limited Arabic proficient: No *Physical Exam - Vital Signs Last Vital Signs Temp Pulse Resp BP Pulse Ox 97.9 F 65 16 162/75 100 03/29/19 12:24 03/29/19 12:24 03/29/19 12:24 03/29/19 12:24 03/29/19 12:24 - Physical Exam Comments: 03/29/19 14:01 GENERAL: Well developed, well nourished. Awake and alert. No acute distress. HEENT: Normocephalic, atraumatic. PERRLA, EOMI. No conjunctival pallor. Sclera are non- icteric. Moist mucous membranes. Oropharynx is clear. NECK: Supple. Full ROM. No JVD. Carotid pulses 2+ and symmetric, without bruits. No thyromegaly. No lymphadenopathy. CARDIOVASCULAR: Regular rate and rhythm. No murmurs, rubs, or gallops. Distal pulses are 2+ and symmetric. PULMONARY: No evidence of respiratory distress. Lungs clear to auscultation bilaterally. No wheezing, rales or rhonchi. ABDOMINAL: Soft. Non-tender. Non-distended. No rebound or guarding. No organomegaly. Normoactive bowel sounds. MUSCULOSKELETAL TTP of the R lower lateral leg along the fibula. Normal range of motion at all joints. No CVA tenderness. EXTREMITIES: No cyanosis. No clubbing. 2+ pitting edema. No calf tenderness. SKIN: Warm and dry. Normal capillary refill. No rashes. No jaundice. NEUROLOGICAL: Alert, awake, appropriate. Cranial nerves 2-12 intact. No deficits to light touch and temperature in face, upper extremities and lower extremities. No motor deficits in the in face, upper extremities and lower extremities. Normoreflexic in the upper and lower extremities. Normal speech. Toes are down- going bilaterally. Gait is normal without ataxia. PSYCHIATRIC: Cooperative. Good eye contact. Appropriate mood and affect. Medical Decision Making - Medical Decision Making 03/29/19 15:27 The patient is an 83 y/o F with PMH of NSTEMI, CAD s/p 3 stents, presents to the ER with R leg pain. The patient states she has had the pain for 3 weeks after getting her leg caught in a sliding glass door. She followed up with her PCP, who ordered a leg CT. The CT shows a mildly displaced midshaft fracture of the R fibula, so he sends her to the ER for evaluation. Pt is walking around the ER. She states that it hurts to walk, but she can't be "cramped up in one room for weeks". Notes that she has associated swelling to the leg. Denies fevers, chills, calf pain, numbness, tingling and weakness to the affected extremity. A/P: R fibula fracture On exam, swelling noted to the R lower leg likely dependent edema, TTP over the R lateral leg, consistent with the CT findings Subacute fracture as this happened three weeks ago Ortho consulted. LEO Christie at bedside Options discussed with patient. She is unable to use crutches as she has 20+ stairs to get into and in her home and she is unable to live on her first floor. Fall risk with crutches Pt does not want admission for rehab. She cannot "be in one room for weeks" Per ortho, will not splint patient and continue to let her walk on it as she has been walking on it for weeks; the will see her as an out patient DC home with supportive therapy and naproxen Strict return precautions given I discussed the physical exam findings, ancillary test results and final diagnoses with the patient. I answered all of the patient's questions. The patient was satisfied with the care received and felt comfortable with the discharge plan and treatment plan. The Patient agrees to follow up with the primary care physician/specialist within 24-72 hours. Return precautions were given. *DC/Admit/Observation/Transfer Diagnosis at time of Disposition: Fibula fracture Qualifiers: Encounter type: initial encounter Fibula location: shaft Fracture type: closed Fracture morphology: other fracture Laterality: right Qualified Code(s): S82.491A - Other fracture of shaft of right fibula, initial encounter for closed fracture - Discharge Dispostion Disposition: HOME Condition at time of disposition: Stable Decision to Admit order: No - Prescriptions Prescriptions: Naproxen 250 mg PO BID #30 tablet - Referrals Referrals: Jeremi Morales MD [Primary Care Provider] - Don Maldonado MD [Staff Physician] - - Patient Instructions Printed Discharge Instructions: Fibula Shaft Fracture Additional Instructions: You were seen today for your leg pain You have a broken bone in your right leg (fibula) Please take the naproxen twice a day to help with the pain You may take the perocet that was previously prescribed to you as directed Ice the leg and keep it elevated while resting Follow up with Dr. Maldonado tomorrow. Call the office Return to the ER for any new or worsening symptoms - Post Discharge Activity
--- NOTE | 2019-03-29 14:10 | CON.ORTH ---
Consult Consult Specialty:: Orthopedics Reason for Consultation:: Right fibula fracture - History of Present Illness Chief Complaint: Right leg pain History of Present Illness: This is an 83 yo F with PMHx of CAD, HTN and HLD who presented to ED for right low leg pain x 3 weeks s/p being hit by a sliding glass door 3 weeks ago. Patient was seen by PCP who sent her for CT of low leg which showed nondisplaced fracture of shaft of fibula. Patient states she has been ambulating with only mild discomfort since the injury. Also notes associated swelling. She denies any previous injury to this area. Denies any numbness, tingling to toes. - History Source History Provided By: Patient Limitations to Obtaining History: No Limitations - Alcohol/Substance Use Hx Alcohol Use: No - Smoking History Smoking history: Never smoked Aproximately how many cigarettes per day: 0 Home Medications - Allergies Allergies/Adverse Reactions: Allergies Allergy/AdvReac Type Severity Reaction Status Date / Time cortisone [Cortisone] Allergy Elevated Verified 03/29/19 12:24 Blood Pressure erythromycin base Allergy Rash Verified 03/29/19 12:24 [Erythromycin Base] Penicillins Allergy Rash Verified 03/29/19 12:24 Tetanus Vaccines and Toxoid Allergy Verified 03/29/19 12:24 [Tetanus] - Home Medications Home Medications: Ambulatory Orders Atorvastatin Ca [Lipitor] 80 mg PO HS 05/29/18 Fenofibrate Nanocrystallized [Fenofibrate] 48 mg PO DAILY 05/29/18 Levothyroxine [Synthroid -] 150 mcg PO DAILY 05/29/18 Metoprolol Succinate [Toprol Xl -] 100 mg PO DAILY 05/29/18 Oxycodone HCl/Acetaminophen [Percocet 5-325 mg Tablet] 1 tab PO Q6H PRN #12 tablet MDD 4 tabs 05/29/18 Valsartan [Diovan] 80 mg PO DAILY 05/29/18 Review of Systems - Review of Systems Musculoskeletal: reports: Other (Right low leg pain and swelling) Physical Exam for Ortho Vital Signs: Vital Signs Temperature 97.9 F 03/29/19 12:24 Pulse Rate 65 03/29/19 12:24 Respiratory Rate 16 03/29/19 12:24 Blood Pressure 162/75 03/29/19 12:24 O2 Sat by Pulse Oximetry (%) 100 03/29/19 12:24 - Lower Extremity Leg: Yes: Right (no skin lesions. Diffuse swelling to low leg. Tender to palpation over fibular shaft. NVID) Imaging - Results Cat Scan: Image Reviewed (Nondisplaced fracture of right fibular shaft) Problem List - Problems (1) Right fibular fracture Code(s): S82.401A - UNSP FRACTURE OF SHAFT OF RIGHT FIBULA, INIT FOR CLOS FX Assessment/Plan This is an 83 yo F with PMHx of CAD, HTN and HLD who was found to have a nondisplaced fracture of fibular shaft sustained 3 weeks ago. Patient has been ambulating with mild discomfort since the injury. -Case discussed with Dr. Maldonado -As patient has been ambulating since the injury, it is safe to continue ambulation while at home -I explained the importance of ambulating with care to avoid further or new injury -Recommended use of cane for assisted ambulation -Rest, ice, elevation and NSAIDs -F/u outpatient in 2 weeks for repeat XR
== END 2019-03-29 15:00 | disposition home or self-care (01) ==
LOC: JER 11:45
DX: S82.491A Other fracture of shaft of right fibula, initial encounter for closed fracture (principal); W23.0XXA Caught, crushed, jammed, or pinched between moving objects, initial encounter; Y93.9 Activity, unspecified; Y92.89 Other specified places as the place of occurrence of the external cause; I10 Essential (primary) hypertension; E78.5 Hyperlipidemia, unspecified; I25.10 Atherosclerotic heart disease of native coronary artery without angina pectoris; I25.2 Old myocardial infarction; Z95.5 Presence of coronary angioplasty implant and graft; Z88.0 Allergy status to penicillin
CPT/HCPCS: 99282-25

== ENCOUNTER 2020-07-02 02:42 | Inpatient (IN) | payer BC, OTHER ==
[2020-07-02] MEDS ORDERED: morphine CARPU-JECT 2 MG/1 ML DISP.SYRIN IVPUSH ONE ×2 (03:19→04:07)
[2020-07-02] MEDS ORDERED: LACTATED RINGERS SOLUTION 1,000 ML/1,000 ML INFUS.BAG IV STA (04:00)
[2020-07-02] MEDS ORDERED: morphine CARPU-JECT 4 MG/1 ML DISP.SYRIN IVPUSH ONE (04:07)
[2020-07-02 04:33] LABS: BASO % 0.7 % (0-2.0); HEMATOCRIT 38.8 % (32.4-45.2); HEMOGLOBIN 12.8 GM/dL (10.7-15.3); MCH 27.9 pg (25.7-33.7); MCHC 32.9 g/dl (32.0-36.0); MEAN CELL VOLUME 84.9 fl (80-96); MEAN PLT VOLUME 7.6 fl (7.5-11.1); MONO % 3.7 % (3.8-10.2); NEUT % 85.6 % (42.8-82.8); PLATELET COUNT 281 K/MM3 (134-434); RBC 4.57 M/mm3 (3.60-5.2); RDW 17.9 % (11.6-15.6); WHITE BLOOD COUNT 11.4 K/mm3 (4.0-10.0)
[2020-07-02 04:43] LABS: INR 1.09 (0.83-1.09); PROTHROMBIN TIME (PATIENT) 13.2 SEC (9.7-13.0)
[2020-07-02 04:48] LABS: CHLORIDE 112 mmol/L (98-107); SODIUM 142 mmol/L (136-145)
[2020-07-02 04:49] LABS: CALCIUM 10.2 mg/dL (8.5-10.1)
[2020-07-02 04:50] LABS: ALBUMIN 4.2 g/dl (3.4-5.0); ANION GAP 10 MMOL/L (8-16); BLOOD UREA NITROGEN 24.5 mg/dL (7-18); CO2 20 mmol/L (21-32); GLUCOSE,RANDOM 143 mg/dL (74-106); LIPASE 78 U/L (73-393)
[2020-07-02 04:53] LABS: CREATININE 0.7 mg/dL (0.55-1.3); SGOT/AST 13 U/L (15-37); SGPT/ALT 29 U/L (13-61)
[2020-07-02 04:54] LABS: BILIRUBIN,TOTAL 0.7 mg/dL (0.2-1); TOT PROT 6.9 g/dl (6.4-8.2)
[2020-07-02 04:56] LABS: ALK PHOS 50 U/L (45-117)
[2020-07-02] MEDS ORDERED: HYDROmorphone HCL CARPU-JECT 2 MG/1 ML DISP.SYRIN IVPUSH ONE ×2 (05:53→11:45)
[2020-07-02] MEDS ORDERED: HYDROmorphone HCl 2 MG/ML VIAL ONE ×2 (06:02→12:30)
[2020-07-02] MEDS ORDERED: LACTATED RINGERS SOLUTION 1,000 ML/1,000 ML INFUS.BAG IV SCH (06:15)
[2020-07-02] MEDS ORDERED: ONDANSETRON 4 MG/2 ML VIAL IVPUSH ONE ×2 (07:44→07:46)
[2020-07-02] MEDS ORDERED: DEXTROSE 5%-0.45% SALINE 1,000 ML IV SCH (08:15)
[2020-07-02] MEDS: LEVOTHYROXINE SODIUM 100 MCG VIAL IVPUSH SCH (10:00)
[2020-07-02] MEDS: CEFTRIAXONE 1 GM in DEXTROSE 5%-WATER - 50 ML IVPB SCH (10:30)
[2020-07-02] MEDS ORDERED: METOPROLOL TARTRATE 5 MG/5 ML VIAL ONE (10:47)
[2020-07-02] MEDS ORDERED: CEFTRIAXONE 1 GM/50 ML BAG ONE (10:48)
[2020-07-02] MEDS ORDERED: HEPARIN NA (PORCINE) 5,000 UNITS/ML 1ML VIAL ONE (10:48)
[2020-07-02] MEDS: HEPARIN NA (PORCINE) 5,000 UNITS/ML 1ML VIAL SQ SCH ×2 (11:15→21:21)
[2020-07-02] MEDS: METOPROLOL TARTRATE 5 MG/5 ML VIAL IVPUSH PRN (11:15)
[2020-07-02] MEDS ORDERED: HYDROmorphone HCl 2 MG/ML VIAL IVPUSH ONE (11:45)
[2020-07-02] MEDS ORDERED: ASPIRIN 81 MG CHEWABLE TABLETS ONE (12:31)
[2020-07-02] MEDS: ASPIRIN 81 MG CHEWABLE TABLETS PO SCH (12:50)
[2020-07-02] MEDS: ACETAMINOPHEN 1000 MG/100 ML BAG IVPB PRN (15:27)
[2020-07-02] MEDS: LACTATED RINGERS SOLUTION 1,000 ML/1,000 ML INFUS.BAG IV SCH (17:03)
[2020-07-02] MEDS ORDERED: PT OWN MED DRAWER 7, Y5N ONE (17:14)
[2020-07-03] MEDS: ONDANSETRON 4 MG/2 ML VIAL IVPUSH PRN ×2 (00:32→20:48)
[2020-07-03] MEDS: ACETAMINOPHEN 1000 MG/100 ML BAG IVPB PRN ×3 (00:44→18:30)
[2020-07-03 06:49] LABS: BASO % 0.2 % (0-2.0); EOS % 0.1 % (0-4.5); HEMATOCRIT 38.2 % (32.4-45.2); HEMOGLOBIN 12.3 GM/dL (10.7-15.3); LYMPH % 15.9 % (8-40); MCH 27.3 pg (25.7-33.7); MCHC 32.3 g/dl (32.0-36.0); MEAN CELL VOLUME 84.5 fl (80-96); MEAN PLT VOLUME 7.3 fl (7.5-11.1); MONO % 8.7 % (3.8-10.2); NEUT % 75.1 % (42.8-82.8); PLATELET COUNT 271 K/MM3 (134-434); RBC 4.52 M/mm3 (3.60-5.2); RDW 17.4 % (11.6-15.6)
[2020-07-03 07:21] LABS: BLOOD UREA NITROGEN 17.2 mg/dL (7-18); CALCIUM 8.9 mg/dL (8.5-10.1); MAGNESIUM 1.6 mg/dL (1.8-2.4)
[2020-07-03 07:22] LABS: ALBUMIN 3.1 g/dl (3.4-5.0)
[2020-07-03 07:24] LABS: CREATININE 0.6 mg/dL (0.55-1.3)
[2020-07-03 07:25] LABS: TOT PROT 5.4 g/dl (6.4-8.2)
[2020-07-03 08:09] LABS: BILIRUBIN,TOTAL 0.6 mg/dL (0.2-1)
[2020-07-03] MEDS ORDERED: DEXTROSE 5%-WATER - 50 ML IVPB ONE (09:48)
[2020-07-03] MEDS ORDERED: cefTRIAXone SODIUM 1 GM VIAL ONE (09:48)
[2020-07-03] MEDS: CEFTRIAXONE 1 GM in DEXTROSE 5%-WATER - 50 ML IVPB SCH (10:17)
[2020-07-03] MEDS: HEPARIN NA (PORCINE) 5,000 UNITS/ML 1ML VIAL SQ SCH ×2 (10:17→21:08)
[2020-07-03] MEDS: LEVOTHYROXINE SODIUM 100 MCG VIAL IVPUSH SCH (10:18)
[2020-07-03] MEDS: LACTATED RINGERS SOLUTION 1,000 ML/1,000 ML INFUS.BAG IV SCH ×2 (10:21→13:43)
[2020-07-03] MEDS: ASPIRIN 81 MG CHEWABLE TABLETS PO SCH (10:29)
[2020-07-03] MEDS: METOPROLOL TARTRATE 5 MG/5 ML VIAL IVPUSH PRN (13:50)
[2020-07-04] MEDS: ACETAMINOPHEN 1000 MG/100 ML BAG IVPB PRN ×2 (00:11→21:42)
[2020-07-04] MEDS: LACTATED RINGERS SOLUTION 1,000 ML/1,000 ML INFUS.BAG IV SCH ×2 (01:56→16:26)
[2020-07-04] MEDS: ONDANSETRON 4 MG/2 ML VIAL IVPUSH PRN (06:15)
[2020-07-04 07:56] LABS: BASO % 0.5 % (0-2.0); EOS % 0.9 % (0-4.5); HEMATOCRIT 44.4 % (32.4-45.2); HEMOGLOBIN 13.9 GM/dL (10.7-15.3); LYMPH % 14.5 % (8-40); MCH 26.8 pg (25.7-33.7); MCHC 31.4 g/dl (32.0-36.0); MEAN CELL VOLUME 85.4 fl (80-96); MEAN PLT VOLUME 7.4 fl (7.5-11.1); MONO % 8.9 % (3.8-10.2); NEUT % 75.2 % (42.8-82.8); PLATELET COUNT 317 K/MM3 (134-434); RDW 17.6 % (11.6-15.6); WHITE BLOOD COUNT 13.4 K/mm3 (4.0-10.0)
[2020-07-04 08:17] LABS: CALCIUM 8.9 mg/dL (8.5-10.1)
[2020-07-04 08:18] LABS: ALBUMIN 2.9 g/dl (3.4-5.0); BLOOD UREA NITROGEN 19.8 mg/dL (7-18)
[2020-07-04 08:21] LABS: CREATININE 0.7 mg/dL (0.55-1.3)
[2020-07-04 08:22] LABS: BILIRUBIN,TOTAL 0.6 mg/dL (0.2-1); TOT PROT 5.3 g/dl (6.4-8.2)
[2020-07-04] MEDS ORDERED: MEROPENEM 1 GM in DEXTROSE 5%-WATER 100 ML IVPB SCH ×2 (08:45→09:00)
[2020-07-04] MEDS ORDERED: MEROPENEM 1 GM VIAL (RESTRICTED TO ID) IVPB ONE (09:13)
[2020-07-04] MEDS ORDERED: DEXTROSE 5%-WATER 100 ML IVPB ONE (09:14)
[2020-07-04] MEDS: ASPIRIN 81 MG CHEWABLE TABLETS PO SCH (09:23)
[2020-07-04] MEDS ORDERED: KETOROLAC TROMETHAMINE 15 MG/ML VIAL IVPUSH PRN (09:27)
[2020-07-04] MEDS: HEPARIN NA (PORCINE) 5,000 UNITS/ML 1ML VIAL SQ SCH ×2 (09:35→21:59)
[2020-07-04] MEDS: LEVOTHYROXINE SODIUM 100 MCG VIAL IVPUSH SCH (09:36)
[2020-07-04] MEDS ORDERED: KETOROLAC TROMETHAMINE 30 MG/1 ML VIAL ONE (10:37)
[2020-07-04] MEDS ORDERED: LIDOCAINE HCL/PF 2% SDV 5ML VIAL ONE (10:37)
[2020-07-04] MEDS ORDERED: DEXAMETHASONE SOD PHOSPHATE 4 MG/1 ML VIAL ONE (10:37)
[2020-07-04] MEDS ORDERED: GLYCOPYRROLATE 0.2 MG/1 ML VIAL ONE (10:40)
[2020-07-04] MEDS ORDERED: NEOSTIGMINE METHYLSULFATE 0.5 MG/ML - 10 ML MDV ONE (10:40)
[2020-07-04] MEDS ORDERED: MAGNESIUM 1GM/D5W - 1 GM/100 ML IVPB IVPB ONE ×2 (10:41→16:07)
[2020-07-04] MEDS ORDERED: ROCURONIUM BROMIDE 50 MG/5 ML SYRINGE ONE (10:43)
[2020-07-04] MEDS ORDERED: ONDANSETRON 4 MG/2 ML VIAL IVPUSH PRN ×2 (10:48→16:07)
[2020-07-04] MEDS ORDERED: LACTATED RINGERS SOLUTION 1,000 ML IV SCH (11:00)
[2020-07-04] MEDS ORDERED: ACETAMINOPHEN 1000 MG/100 ML BAG IVPB ONE ×2 (11:45→14:28)
[2020-07-04] MEDS ORDERED: ACETAMINOPHEN INJECTION 100 ML IVPB ONE ×2 (14:20→20:00)
[2020-07-04] MEDS ORDERED: HYDROmorphone *PCA* 10MG/50ML DISP.SYRIN ONE (14:59)
[2020-07-04] MEDS: HYDROmorphone *PCA* 10MG/50ML DISP.SYRIN PCA SCH ×2 (15:09→16:00)
[2020-07-04] MEDS ORDERED: METOPROLOL TARTRATE 5 MG/5 ML VIAL IVPUSH PRN (16:07)
[2020-07-04 16:10] LABS: BASO % 0.5 % (0-2.0); HEMATOCRIT 45.1 % (32.4-45.2); HEMOGLOBIN 14.4 GM/dL (10.7-15.3); LYMPH % 5.9 % (8-40); MCH 27.7 pg (25.7-33.7); MCHC 31.8 g/dl (32.0-36.0); MEAN CELL VOLUME 87.1 fl (80-96); MEAN PLT VOLUME 7.7 fl (7.5-11.1); MONO % 7.3 % (3.8-10.2); NEUT % 86.3 % (42.8-82.8); PLATELET COUNT 277 K/MM3 (134-434); RBC 5.17 M/mm3 (3.60-5.2); RDW 17.6 % (11.6-15.6); WHITE BLOOD COUNT 12.6 K/mm3 (4.0-10.0)
[2020-07-04] MEDS ORDERED: ACETAMINOPHEN 1000 MG/100 ML BAG IVPB PRN ×2 (16:22→18:00)
[2020-07-04] MEDS: LACTATED RINGERS SOLUTION 1,000 ML IV SCH (16:27)
[2020-07-04 16:38] LABS: CALCIUM 8.9 mg/dL (8.5-10.1)
[2020-07-04 16:39] LABS: ALBUMIN 2.8 g/dl (3.4-5.0); BLOOD UREA NITROGEN 23.3 mg/dL (7-18); MAGNESIUM 1.7 mg/dL (1.8-2.4)
[2020-07-04 16:42] LABS: CREATININE 0.8 mg/dL (0.55-1.3); PHOSPHOROUS 3.3 mg/dL (2.5-4.9)
[2020-07-04 16:43] LABS: BILIRUBIN,TOTAL 0.9 mg/dL (0.2-1)
[2020-07-04] MEDS ORDERED: ERTAPENEM SODIUM 1 GM in SODIUM CHLORIDE 50 ML IVPB SCH (21:00)
[2020-07-04] MEDS: MUPIROCIN 2% TOPICAL OINTMENT FOR DECOLONIZATION NS SCH (21:44)
[2020-07-04] MEDS: ERTAPENEM SODIUM 1 GM in SODIUM CHLORIDE 50 ML IVPB SCH (21:44)
[2020-07-04] MEDS ORDERED: MUPIROCIN 2% TOPICAL OINTMENT FOR DECOLONIZATION NS SCH (22:00)
[2020-07-04] MEDS ORDERED: CHLORHEXIDINE GLUCONATE 4% CLEANSER FOR DECOLONIZATION TP SCH (22:00)
[2020-07-05] MEDS: LACTATED RINGERS SOLUTION 1,000 ML IV SCH ×3 (02:00→16:10)
[2020-07-05] MEDS ORDERED: HYDROmorphone HCl 2 MG/ML VIAL IVPUSH PRN (02:28)
[2020-07-05] MEDS ORDERED: METOPROLOL TARTRATE 5 MG/5 ML VIAL IVPUSH ONE (04:54)
[2020-07-05] MEDS ORDERED: AMIODARONE HCL 150 MG/3 ML VIAL IVPUSH ONE (06:08)
[2020-07-05 06:33] LABS: BASO % 0.4 % (0-2.0); EOS % 1.1 % (0-4.5); HEMATOCRIT 37.4 % (32.4-45.2); LYMPH % 16.9 % (8-40); MCH 27.3 pg (25.7-33.7); MCHC 32.1 g/dl (32.0-36.0); MEAN CELL VOLUME 85.1 fl (80-96); MEAN PLT VOLUME 7.6 fl (7.5-11.1); MONO % 12.7 % (3.8-10.2); NEUT % 68.9 % (42.8-82.8); PLATELET COUNT 273 K/MM3 (134-434); RDW 17.7 % (11.6-15.6); WHITE BLOOD COUNT 9.6 K/mm3 (4.0-10.0)
[2020-07-05 06:50] LABS: ALBUMIN 2.4 g/dl (3.4-5.0); BLOOD UREA NITROGEN 26.7 mg/dL (7-18); CALCIUM 8.3 mg/dL (8.5-10.1); MAGNESIUM 2.1 mg/dL (1.8-2.4)
[2020-07-05 06:53] LABS: CREATININE 0.9 mg/dL (0.55-1.3); PHOSPHOROUS 3.7 mg/dL (2.5-4.9)
[2020-07-05 06:55] LABS: BILIRUBIN,TOTAL 0.7 mg/dL (0.2-1); TOT PROT 4.3 g/dl (6.4-8.2)
[2020-07-05] MEDS: MUPIROCIN 2% TOPICAL OINTMENT FOR DECOLONIZATION NS SCH ×2 (09:40→23:51)
[2020-07-05] MEDS: PANTOPRAZOLE SODIUM 40 MG VIAL IVPUSH SCH (09:41)
[2020-07-05] MEDS: HEPARIN NA (PORCINE) 5,000 UNITS/ML 1ML VIAL SQ SCH ×2 (09:41→23:51)
[2020-07-05] MEDS ORDERED: PT OWN MED DRAWER 7, Y5N ONE ×2 (09:51→22:16)
[2020-07-05] MEDS: ACETAMINOPHEN 1000 MG/100 ML BAG IVPB PRN (10:25)
[2020-07-05] MEDS: LEVOTHYROXINE SODIUM 100 MCG VIAL IVPUSH SCH (11:50)
[2020-07-05 12:40] LABS: EPI CELLS 32 /uL (0-25.1); HYALINE CASTS 24 /uL (0-3.1); URINE APPEARANCE CLOUDY; URINE BILIRUBIN NEGATIVE (NEGATIVE); URINE COLOR DK YELLOW; URINE GLUCOSE (UA) NEGATIVE (NEGATIVE); URINE KETONE TRACE (NEGATIVE); URINE LEUK ESTERASE NEGATIVE (NEGATIVE); URINE NITRITE POSITIVE (NEGATIVE); URINE PROTEIN TRACE (NEGATIVE); URINE RBC 7 /uL (0-23.9); URINE WBC 18 /uL (0-25.8)
[2020-07-05 12:48] LABS: URINE BACTERIA 20.7 /uL (0-1359)
[2020-07-05] MEDS ORDERED: PCA PUMP NR ONE ×2 (18:25→18:30)
[2020-07-05] MEDS: ONDANSETRON 4 MG/2 ML VIAL IVPUSH PRN (20:07)
[2020-07-05] MEDS: ERTAPENEM SODIUM 1 GM in SODIUM CHLORIDE 50 ML IVPB SCH (21:00)
[2020-07-06 07:07] LABS: HEMATOCRIT 32.5 % (32.4-45.2); HEMOGLOBIN 10.6 GM/dL (10.7-15.3); MCH 27.9 pg (25.7-33.7); MCHC 32.7 g/dl (32.0-36.0); MEAN CELL VOLUME 85.1 fl (80-96); MEAN PLT VOLUME 7.3 fl (7.5-11.1); PLATELET COUNT 229 K/MM3 (134-434); RBC 3.81 M/mm3 (3.60-5.2); RDW 17.1 % (11.6-15.6); WHITE BLOOD COUNT 7.8 K/mm3 (4.0-10.0)
[2020-07-06 07:29] LABS: BLOOD UREA NITROGEN 21.3 mg/dL (7-18)
[2020-07-06 07:30] LABS: CALCIUM 8.2 mg/dL (8.5-10.1)
[2020-07-06 07:32] LABS: CREATININE 0.4 mg/dL (0.55-1.3); MAGNESIUM 1.7 mg/dL (1.8-2.4); PHOSPHOROUS 2.2 mg/dL (2.5-4.9)
[2020-07-06] MEDS: MUPIROCIN 2% TOPICAL OINTMENT FOR DECOLONIZATION NS SCH ×2 (09:28→21:00)
[2020-07-06] MEDS: PANTOPRAZOLE SODIUM 40 MG VIAL IVPUSH SCH (09:28)
[2020-07-06] MEDS: HEPARIN NA (PORCINE) 5,000 UNITS/ML 1ML VIAL SQ SCH ×2 (09:28→21:00)
[2020-07-06] MEDS ORDERED: PT OWN MED DRAWER 7, Y5N ONE ×2 (09:45→22:04)
[2020-07-06] MEDS: LEVOTHYROXINE SODIUM 100 MCG VIAL IVPUSH SCH (11:00)
[2020-07-06 15:25] VITALS: BMI 20.6
[2020-07-06] MEDS: LACTATED RINGERS SOLUTION 1,000 ML IV SCH (16:39)
[2020-07-06] MEDS: ERTAPENEM SODIUM 1 GM in SODIUM CHLORIDE 50 ML IVPB SCH (21:00)
[2020-07-07 07:14] LABS: HEMOGLOBIN 10.6 GM/dL (10.7-15.3); MCH 27.5 pg (25.7-33.7); MCHC 32.1 g/dl (32.0-36.0); MEAN CELL VOLUME 85.6 fl (80-96); MEAN PLT VOLUME 7.2 fl (7.5-11.1); PLATELET COUNT 263 K/MM3 (134-434); RBC 3.86 M/mm3 (3.60-5.2); WHITE BLOOD COUNT 9.8 K/mm3 (4.0-10.0)
[2020-07-07 07:47] LABS: CALCIUM 8.6 mg/dL (8.5-10.1)
[2020-07-07 07:48] LABS: BLOOD UREA NITROGEN 15.4 mg/dL (7-18)
[2020-07-07 07:49] LABS: MAGNESIUM 1.8 mg/dL (1.8-2.4)
[2020-07-07 07:51] LABS: CREATININE 0.3 mg/dL (0.55-1.3)
[2020-07-07] MEDS ORDERED: POTASSIUM CHLORIDE 10 MEQ PREMIX IVPB (POTASSIUM RIDER) IVPB SCH (08:24)
[2020-07-07] MEDS ORDERED: PT OWN MED DRAWER 7, Y5N ONE (09:05)
[2020-07-07] MEDS: HEPARIN NA (PORCINE) 5,000 UNITS/ML 1ML VIAL SQ SCH ×2 (09:15→21:28)
[2020-07-07] MEDS: PANTOPRAZOLE SODIUM 40 MG VIAL IVPUSH SCH (09:15)
[2020-07-07] MEDS: LEVOTHYROXINE SODIUM 100 MCG VIAL IVPUSH SCH (09:15)
[2020-07-07] MEDS: MUPIROCIN 2% TOPICAL OINTMENT FOR DECOLONIZATION NS SCH ×2 (09:16→21:34)
[2020-07-07] MEDS: LACTATED RINGERS SOLUTION 1,000 ML IV SCH (18:29)
[2020-07-07] MEDS ORDERED: ACETAMINOPHEN 1000 MG/100 ML BAG IVPB PRN (19:25)
[2020-07-07] MEDS: ERTAPENEM SODIUM 1 GM in SODIUM CHLORIDE 50 ML IVPB SCH (21:28)
[2020-07-08] MEDS ORDERED: SODIUM PHOSPHATE - 15 MM in SODIUM CHLORIDE 250 ML IVPB ONE (08:54)
[2020-07-08] MEDS ORDERED: PT OWN MED DRAWER 7, Y5N ONE ×2 (09:39→20:48)
[2020-07-08] MEDS: ONDANSETRON 4 MG/2 ML VIAL IVPUSH PRN (09:44)
[2020-07-08] MEDS: HEPARIN NA (PORCINE) 5,000 UNITS/ML 1ML VIAL SQ SCH ×2 (09:44→21:06)
[2020-07-08] MEDS: PANTOPRAZOLE SODIUM 40 MG VIAL IVPUSH SCH (09:45)
[2020-07-08] MEDS: LEVOTHYROXINE SODIUM 100 MCG VIAL IVPUSH SCH (09:45)
[2020-07-08] MEDS: MUPIROCIN 2% TOPICAL OINTMENT FOR DECOLONIZATION NS SCH ×2 (09:45→21:06)
[2020-07-08] MEDS ORDERED: SODIUM PHOSPHATE - 20 MM in SODIUM CHLORIDE 250 ML IVPB ONE (10:00)
[2020-07-08] MEDS ORDERED: ACETAMINOPHEN 1000 MG/100 ML BAG IVPB ONE (13:50)
[2020-07-08] MEDS: LACTATED RINGERS SOLUTION 1,000 ML IV SCH (16:08)
[2020-07-08] MEDS ORDERED: LACTATED RINGERS SOLUTION 1,000 ML IV SCH (16:45)
[2020-07-08] MEDS: KETOROLAC TROMETHAMINE 0.5% EYE DROP 1 DROP DROPS OS SCH ×2 (18:31→21:06)
[2020-07-08] MEDS: ERTAPENEM SODIUM 1 GM in SODIUM CHLORIDE 50 ML IVPB SCH (21:06)
[2020-07-08] MEDS ORDERED: ATORVASTATIN CA 80 MG TABLET (FP) PO SCH (22:00)
[2020-07-09] MEDS: ACETAMINOPHEN 1000 MG/100 ML BAG IVPB PRN ×3 (04:47→18:22)
[2020-07-09 07:10] LABS: BASO % 0.3 % (0-2.0); EOS % 1.2 % (0-4.5); HEMOGLOBIN 7.8 GM/dL (10.7-15.3); LYMPH % 15.6 % (8-40); MCH 27.7 pg (25.7-33.7); MCHC 32.6 g/dl (32.0-36.0); MEAN CELL VOLUME 84.9 fl (80-96); MEAN PLT VOLUME 7.5 fl (7.5-11.1); MONO % 10.6 % (3.8-10.2); NEUT % 72.3 % (42.8-82.8); PLATELET COUNT 352 K/MM3 (134-434); RBC 2.82 M/mm3 (3.60-5.2); RDW 17.2 % (11.6-15.6); WHITE BLOOD COUNT 9.2 K/mm3 (4.0-10.0)
[2020-07-09 07:28] LABS: CALCIUM 7.9 mg/dL (8.5-10.1)
[2020-07-09 07:29] LABS: ALBUMIN 1.7 g/dl (3.4-5.0); BLOOD UREA NITROGEN 15.7 mg/dL (7-18); MAGNESIUM 1.7 mg/dL (1.8-2.4)
[2020-07-09 07:32] LABS: CREATININE 0.3 mg/dL (0.55-1.3); PHOSPHOROUS 2.7 mg/dL (2.5-4.9)
[2020-07-09 07:33] LABS: BILIRUBIN,TOTAL 0.4 mg/dL (0.2-1); TOT PROT 3.9 g/dl (6.4-8.2)
[2020-07-09] MEDS ORDERED: MAGNESIUM SULF 50% (8.12 MEQ/2 ML-1 GM VIAL) IVPB ONE (08:11)
[2020-07-09 09:33] LABS: ANISOCYTOSIS 1+; PLATELET ESTIMATE NORMAL
[2020-07-09] MEDS ORDERED: LEVOTHYROXINE SODIUM 100 MCG VIAL IVPUSH SCH ×2 (10:00)
[2020-07-09] MEDS ORDERED: PATIENT'S OWN MEDICATION (NON-FORMULARY) (Fenofibrate Nanocrystallized [Fenofibrate] 48 MG PO SCH (10:00)
[2020-07-09] MEDS ORDERED: LEVOTHYROXINE NA 150 MCG TABLET PO SCH (10:00)
[2020-07-09] MEDS ORDERED: FUROSEMIDE 40 MG/4 ML INJECTABLE VIAL IVPUSH ONE (10:45)
[2020-07-09] MEDS: MUPIROCIN 2% TOPICAL OINTMENT FOR DECOLONIZATION NS SCH (11:00)
[2020-07-09] MEDS: PANTOPRAZOLE SODIUM 40 MG VIAL IVPUSH SCH (11:00)
[2020-07-09] MEDS: LEVOTHYROXINE SODIUM 100 MCG VIAL IVPUSH SCH (11:04)
[2020-07-09] MEDS: ERTAPENEM SODIUM 1 GM in SODIUM CHLORIDE 50 ML IVPB SCH (11:18)
[2020-07-09] MEDS: KETOROLAC TROMETHAMINE 0.5% EYE DROP 1 DROP DROPS OS SCH ×4 (11:34→21:32)
[2020-07-09] MEDS: HEPARIN NA (PORCINE) 5,000 UNITS/ML 1ML VIAL SQ SCH ×2 (11:34→21:32)
[2020-07-09 21:33] LABS: HEMATOCRIT 26.6 % (32.4-45.2); HEMOGLOBIN 8.9 GM/dL (10.7-15.3); MCHC 33.4 g/dl (32.0-36.0); MEAN CELL VOLUME 86.9 fl (80-96); MEAN PLT VOLUME 7.1 fl (7.5-11.1); PLATELET COUNT 372 K/MM3 (134-434); RBC 3.07 M/mm3 (3.60-5.2); RDW 16.9 % (11.6-15.6); WHITE BLOOD COUNT 9.9 K/mm3 (4.0-10.0)
[2020-07-10] MEDS: ACETAMINOPHEN 1000 MG/100 ML BAG IVPB PRN ×2 (00:30→06:26)
[2020-07-10] MEDS: PANTOPRAZOLE SODIUM 40 MG VIAL IVPUSH SCH (09:38)
[2020-07-10] MEDS: HEPARIN NA (PORCINE) 5,000 UNITS/ML 1ML VIAL SQ SCH ×2 (09:39→21:04)
[2020-07-10] MEDS: ERTAPENEM SODIUM 1 GM in SODIUM CHLORIDE 50 ML IVPB SCH (09:41)
[2020-07-10] MEDS: KETOROLAC TROMETHAMINE 0.5% EYE DROP 1 DROP DROPS OS SCH ×4 (09:47→21:05)
[2020-07-10] MEDS ORDERED: PT OWN MED DRAWER 7, Y5N ONE (09:50)
[2020-07-10] MEDS: LEVOTHYROXINE SODIUM 100 MCG VIAL IVPUSH SCH (09:53)
[2020-07-10 11:00] LABS: BASO % 0.6 % (0-2.0); EOS % 1.4 % (0-4.5); HEMATOCRIT 29.6 % (32.4-45.2); HEMOGLOBIN 9.5 GM/dL (10.7-15.3); LYMPH % 15.4 % (8-40); MCH 27.9 pg (25.7-33.7); MCHC 32.1 g/dl (32.0-36.0); MEAN CELL VOLUME 86.9 fl (80-96); MEAN PLT VOLUME 7.1 fl (7.5-11.1); MONO % 8.1 % (3.8-10.2); NEUT % 74.5 % (42.8-82.8); PLATELET COUNT 453 K/MM3 (134-434); RDW 16.7 % (11.6-15.6); WHITE BLOOD COUNT 9.4 K/mm3 (4.0-10.0)
[2020-07-10 11:19] LABS: BLOOD UREA NITROGEN 16.7 mg/dL (7-18)
[2020-07-10 11:20] LABS: ALBUMIN 2.2 g/dl (3.4-5.0); CALCIUM 8.9 mg/dL (8.5-10.1); MAGNESIUM 1.9 mg/dL (1.8-2.4)
[2020-07-10 11:23] LABS: CREATININE 0.3 mg/dL (0.55-1.3)
[2020-07-10 11:24] LABS: PHOSPHOROUS 2.4 mg/dL (2.5-4.9)
[2020-07-10 11:25] LABS: BILIRUBIN,TOTAL 0.5 mg/dL (0.2-1); TOT PROT 4.6 g/dl (6.4-8.2)
[2020-07-10] MEDS: IBUPROFEN 800 MG/8 ML IJ IVPB SCH ×3 (11:25→23:35)
[2020-07-10] MEDS ORDERED: DEXTROSE 5%-0.45% SALINE 1,000 ML IV SCH (13:00)
[2020-07-10] MEDS ORDERED: SODIUM PHOSPHATE - 15 MM in SODIUM CHLORIDE 250 ML IVPB ONE (15:58)
[2020-07-10] MEDS ORDERED: SODIUM PHOSPHATE - 15 MM in DEXTROSE 5%-WATER - 250 ML IVPB ONE (15:59)
[2020-07-10] MEDS ORDERED: AMINO ACIDS 4.25%/D5W 1,000 ML IV SCH (17:30)
[2020-07-11] MEDS: IBUPROFEN 800 MG/8 ML IJ IVPB SCH ×2 (05:43→11:12)
[2020-07-11 07:13] LABS: BASO % 0.5 % (0-2.0); EOS % 1.5 % (0-4.5); HEMATOCRIT 28.1 % (32.4-45.2); HEMOGLOBIN 9.2 GM/dL (10.7-15.3); LYMPH % 16.2 % (8-40); MCH 28.2 pg (25.7-33.7); MCHC 32.6 g/dl (32.0-36.0); MEAN CELL VOLUME 86.6 fl (80-96); MONO % 9.1 % (3.8-10.2); NEUT % 72.7 % (42.8-82.8); PLATELET COUNT 474 K/MM3 (134-434); RBC 3.25 M/mm3 (3.60-5.2); RDW 16.7 % (11.6-15.6); WHITE BLOOD COUNT 7.6 K/mm3 (4.0-10.0)
[2020-07-11 07:34] LABS: CALCIUM 8.6 mg/dL (8.5-10.1)
[2020-07-11 07:35] LABS: BLOOD UREA NITROGEN 16.5 mg/dL (7-18); MAGNESIUM 1.7 mg/dL (1.8-2.4)
[2020-07-11 07:38] LABS: CREATININE 0.3 mg/dL (0.55-1.3)
[2020-07-11 07:39] LABS: BILIRUBIN,TOTAL 0.8 mg/dL (0.2-1); TOT PROT 4.3 g/dl (6.4-8.2)
[2020-07-11] MEDS ORDERED: MAGNESIUM SULF 50% (8.12 MEQ/2 ML-1 GM VIAL) IVPB ONE (09:00)
[2020-07-11 09:46] LABS: ANISOCYTOSIS 0; MACROCYTOSIS 0; PLATELET ESTIMATE NORMAL
[2020-07-11] MEDS ORDERED: PT OWN MED DRAWER 7, Y5N ONE (10:23)
[2020-07-11] MEDS: PANTOPRAZOLE SODIUM 40 MG VIAL IVPUSH SCH (11:14)
[2020-07-11] MEDS: HEPARIN NA (PORCINE) 5,000 UNITS/ML 1ML VIAL SQ SCH ×2 (11:21→21:52)
[2020-07-11] MEDS: KETOROLAC TROMETHAMINE 0.5% EYE DROP 1 DROP DROPS OS SCH (11:22)
[2020-07-11] MEDS: LEVOTHYROXINE SODIUM 100 MCG VIAL IVPUSH SCH (11:26)
[2020-07-11] MEDS ORDERED: ONDANSETRON 4 MG/2 ML VIAL IVPUSH PRN ×2 (11:30→17:17)
[2020-07-11] MEDS ORDERED: METOPROLOL TARTRATE 5 MG/5 ML VIAL IVPUSH PRN (11:30)
[2020-07-11] MEDS: ERTAPENEM SODIUM 1 GM in SODIUM CHLORIDE 50 ML IVPB SCH (11:36)
[2020-07-11] MEDS ORDERED: ERTAPENEM SODIUM 1 GM in SODIUM CHLORIDE 50 ML IVPB SCH (11:45)
[2020-07-11] MEDS ORDERED: KETOROLAC TROMETHAMINE 0.5% EYE DROP 1 DROP DROPS OS SCH ×2 (14:00→18:00)
[2020-07-11] MEDS ORDERED: MAGNESIUM 1GM/D5W - 1 GM/100 ML IVPB IVPB ONE (15:00)
[2020-07-11] MEDS ORDERED: AMINO ACIDS 4.25%/D5W 1,000 ML IV SCH (17:15)
[2020-07-11] MEDS ORDERED: IBUPROFEN 800 MG/8 ML IJ IVPB SCH ×2 (17:15→23:15)
[2020-07-11] MEDS ORDERED: HEPARIN NA (PORCINE) 5,000 UNITS/ML 1ML VIAL SQ SCH (22:00)
[2020-07-12 09:23] LABS: BASO % 0.4 % (0-2.0); EOS % 1.2 % (0-4.5); HEMATOCRIT 28.8 % (32.4-45.2); HEMOGLOBIN 9.6 GM/dL (10.7-15.3); LYMPH % 14.4 % (8-40); MCHC 33.2 g/dl (32.0-36.0); MEAN CELL VOLUME 87.2 fl (80-96); MEAN PLT VOLUME 6.7 fl (7.5-11.1); MONO % 7.7 % (3.8-10.2); NEUT % 76.3 % (42.8-82.8); PLATELET COUNT 505 K/MM3 (134-434); RBC 3.31 M/mm3 (3.60-5.2); RDW 17.2 % (11.6-15.6); WHITE BLOOD COUNT 9.7 K/mm3 (4.0-10.0)
[2020-07-12] MEDS ORDERED: LEVOTHYROXINE SODIUM 100 MCG VIAL IVPUSH SCH (10:00)
[2020-07-12] MEDS ORDERED: PANTOPRAZOLE SODIUM 40 MG VIAL IVPUSH SCH (10:00)
[2020-07-12 10:17] LABS: CALCIUM 8.5 mg/dL (8.5-10.1)
[2020-07-12 10:18] LABS: ALBUMIN 2.1 g/dl (3.4-5.0); BLOOD UREA NITROGEN 12.6 mg/dL (7-18)
[2020-07-12] MEDS: HEPARIN NA (PORCINE) 5,000 UNITS/ML 1ML VIAL SQ SCH ×2 (10:19→21:30)
[2020-07-12 10:21] LABS: CREATININE 0.3 mg/dL (0.55-1.3); PHOSPHOROUS 2.8 mg/dL (2.5-4.9)
[2020-07-12 10:23] LABS: BILIRUBIN,TOTAL 0.8 mg/dL (0.2-1); TOT PROT 4.3 g/dl (6.4-8.2)
[2020-07-12] MEDS: PANTOPRAZOLE SODIUM 40 MG VIAL IVPUSH SCH (10:23)
[2020-07-12] MEDS: LEVOTHYROXINE SODIUM 100 MCG VIAL IVPUSH SCH (10:25)
[2020-07-12 11:18] LABS: ANISOCYTOSIS 1+; MACROCYTOSIS 1+; PLATELET ESTIMATE INCREASED
[2020-07-12] MEDS ORDERED: IBUPROFEN 800 MG/8 ML IJ IVPB PRN (17:19)
[2020-07-13] MEDS: IBUPROFEN 800 MG/8 ML IJ IVPB PRN ×2 (00:01→10:59)
[2020-07-13 08:59] LABS: BASO % 0.6 % (0-2.0); EOS % 2.5 % (0-4.5); HEMATOCRIT 28.5 % (32.4-45.2); HEMOGLOBIN 9.3 GM/dL (10.7-15.3); LYMPH % 17.6 % (8-40); MCH 28.6 pg (25.7-33.7); MCHC 32.7 g/dl (32.0-36.0); MEAN CELL VOLUME 87.5 fl (80-96); MEAN PLT VOLUME 6.9 fl (7.5-11.1); MONO % 8.4 % (3.8-10.2); NEUT % 70.9 % (42.8-82.8); PLATELET COUNT 496 K/MM3 (134-434); RBC 3.25 M/mm3 (3.60-5.2); RDW 17.6 % (11.6-15.6); WHITE BLOOD COUNT 9.4 K/mm3 (4.0-10.0)
[2020-07-13 09:21] LABS: BLOOD UREA NITROGEN 11.7 mg/dL (7-18); CALCIUM 8.1 mg/dL (8.5-10.1); MAGNESIUM 1.8 mg/dL (1.8-2.4)
[2020-07-13 09:24] LABS: CREATININE 0.4 mg/dL (0.55-1.3)
[2020-07-13] MEDS: VALSARTAN 40 MG TABLET PO SCH (09:25)
[2020-07-13 09:26] LABS: BILIRUBIN,TOTAL 0.7 mg/dL (0.2-1); TOT PROT 4.3 g/dl (6.4-8.2)
[2020-07-13] MEDS: PANTOPRAZOLE SODIUM 40 MG VIAL IVPUSH SCH (09:28)
[2020-07-13] MEDS: LEVOTHYROXINE SODIUM 100 MCG VIAL IVPUSH SCH (09:28)
[2020-07-13] MEDS: HEPARIN NA (PORCINE) 5,000 UNITS/ML 1ML VIAL SQ SCH ×2 (09:43→21:18)
[2020-07-13] MEDS ORDERED: FUROSEMIDE 20 MG TABLET (FP) PO ONE (10:36)
[2020-07-13] MEDS ORDERED: MAGNESIUM SULF 50% (8.12 MEQ/2 ML-1 GM VIAL) IVPB ONE (10:56)
[2020-07-13] MEDS ORDERED: MAGNESIUM 1GM/D5W - 1 GM/100 ML IVPB IVPB ONE (11:30)
[2020-07-13 11:49] LABS: ANISOCYTOSIS 1+; MACROCYTOSIS 0; PLATELET ESTIMATE INCREASED
[2020-07-14] MEDS: IBUPROFEN 800 MG/8 ML IJ IVPB PRN ×2 (00:07→11:04)
[2020-07-14 08:32] LABS: BASO % 0.4 % (0-2.0); EOS % 3.2 % (0-4.5); HEMATOCRIT 29.4 % (32.4-45.2); HEMOGLOBIN 9.8 GM/dL (10.7-15.3); LYMPH % 17.1 % (8-40); MCH 29.3 pg (25.7-33.7); MCHC 33.2 g/dl (32.0-36.0); MEAN CELL VOLUME 88.2 fl (80-96); MEAN PLT VOLUME 6.8 fl (7.5-11.1); NEUT % 71.3 % (42.8-82.8); PLATELET COUNT 487 K/MM3 (134-434); RBC 3.34 M/mm3 (3.60-5.2); RDW 17.9 % (11.6-15.6); WHITE BLOOD COUNT 10.5 K/mm3 (4.0-10.0)
[2020-07-14 09:00] LABS: BLOOD UREA NITROGEN 11.5 mg/dL (7-18); CALCIUM 8.1 mg/dL (8.5-10.1); MAGNESIUM 1.8 mg/dL (1.8-2.4)
[2020-07-14 09:03] LABS: CREATININE 0.4 mg/dL (0.55-1.3); PHOSPHOROUS 3.2 mg/dL (2.5-4.9)
[2020-07-14 09:05] LABS: BILIRUBIN,TOTAL 0.8 mg/dL (0.2-1); TOT PROT 4.2 g/dl (6.4-8.2)
[2020-07-14 09:31] LABS: ANISOCYTOSIS 0; MACROCYTOSIS 0; PLATELET ESTIMATE INCREASED
[2020-07-14] MEDS ORDERED: MAGNESIUM 1GM/D5W 100ML - 100 ML IVPB IVPB ONE (10:00)
[2020-07-14] MEDS ORDERED: PT OWN MED DRAWER 7, Y5N ONE (10:30)
[2020-07-14] MEDS: HEPARIN NA (PORCINE) 5,000 UNITS/ML 1ML VIAL SQ SCH ×2 (11:06→22:21)
[2020-07-14] MEDS: VALSARTAN 40 MG TABLET PO SCH (11:07)
[2020-07-14] MEDS: LEVOTHYROXINE SODIUM 100 MCG VIAL IVPUSH SCH (11:09)
[2020-07-14] MEDS: PANTOPRAZOLE SODIUM 40 MG VIAL IVPUSH SCH (11:09)
[2020-07-14 20:00] LABS: EPI CELLS 17 /uL (0-25.1); HYALINE CASTS 2 /uL (0-3.1); URINE APPEARANCE CLOUDY; URINE BACTERIA 3278 /uL (0-1359); URINE BILIRUBIN NEGATIVE (NEGATIVE); URINE COLOR YELLOW; URINE GLUCOSE (UA) NEGATIVE (NEGATIVE); URINE KETONE NEGATIVE (NEGATIVE); URINE LEUK ESTERASE 2+ (NEGATIVE); URINE NITRITE NEGATIVE (NEGATIVE); URINE PROTEIN NEGATIVE (NEGATIVE); URINE UROBILINOGEN 0.2 mg/dL (0.2-1.0); URINE WBC 124 /uL (0-25.8)
[2020-07-14 21:16] LABS: URINE RBC 116.5 /uL (0-23.9)
[2020-07-14 21:17] LABS: URINE CRYSTALS 0 /hpf; YEAST NEGATIVE (NEGATIVE)
[2020-07-14] MEDS: ACETAMINOPHEN 1000 MG/100 ML BAG IVPB ONE (22:21)
[2020-07-15] MEDS ORDERED: ACETAMINOPHEN 325 MG TABLET (FP) PO ONE (00:33)
[2020-07-15] MEDS: ACETAMINOPHEN 1000 MG/100 ML BAG IVPB ONE (01:34)
[2020-07-15] MEDS ORDERED: LEVOTHYROXINE NA 150 MCG TABLET PO SCH (07:00)
[2020-07-15 07:58] LABS: BASO % 0.3 % (0-2.0); HEMATOCRIT 28.1 % (32.4-45.2); HEMOGLOBIN 9.2 GM/dL (10.7-15.3); LYMPH % 13.8 % (8-40); MCH 28.7 pg (25.7-33.7); MCHC 32.9 g/dl (32.0-36.0); MEAN CELL VOLUME 87.3 fl (80-96); MEAN PLT VOLUME 6.8 fl (7.5-11.1); MONO % 8.6 % (3.8-10.2); NEUT % 74.3 % (42.8-82.8); PLATELET COUNT 533 K/MM3 (134-434); RBC 3.21 M/mm3 (3.60-5.2); RDW 17.9 % (11.6-15.6); WHITE BLOOD COUNT 10.8 K/mm3 (4.0-10.0)
[2020-07-15 08:14] LABS: BLOOD UREA NITROGEN 10.1 mg/dL (7-18); CALCIUM 8.1 mg/dL (8.5-10.1); CREATININE 0.4 mg/dL (0.55-1.3); MAGNESIUM 1.9 mg/dL (1.8-2.4)
[2020-07-15 08:17] LABS: BILIRUBIN,TOTAL 0.5 mg/dL (0.2-1); PHOSPHOROUS 3.3 mg/dL (2.5-4.9); TOT PROT 4.3 g/dl (6.4-8.2)
[2020-07-15] MEDS ORDERED: PT OWN MED DRAWER 7, Y5N ONE (09:20)
[2020-07-15] MEDS ORDERED: PANTOPRAZOLE 40 MG TABLET PO SCH (10:00)
[2020-07-15] MEDS: HEPARIN NA (PORCINE) 5,000 UNITS/ML 1ML VIAL SQ SCH (10:08)
[2020-07-15] MEDS: VALSARTAN 40 MG TABLET PO SCH (10:08)
[2020-07-15 10:33] LABS: ANISOCYTOSIS 0; MACROCYTOSIS 1+; OVALOCYTE 1+; PLATELET ESTIMATE INCREASED
[2020-07-15 11:04] VITALS: TEMP 98.5
[2020-07-15] MEDS ORDERED: ACETAMINOPHEN 325 MG TABLET (FP) PO PRN (13:58)
[2020-07-15 14:24] VITALS: BP 125/70; PULSE 84
== END 2020-07-15 17:57 | disposition home health service (06) | DRG 336 ==
LOC: JER 02:42 → JERBED 08:04 → J6S 15:07 → JICU 07-04 16:22 → J4S 07-10 21:33 → J6S 07-11 15:09
PROVIDERS: ATTEND Internal Medicine
PROC: 0DNW0ZZ Release Peritoneum, Open Approach (ICD-10-PCS; principal; 2020-07-04)
PROC: 0WJG0ZZ Inspection of Peritoneal Cavity, Open Approach (ICD-10-PCS; 2020-07-04)
PROC: 0WPF0JZ Removal of Synthetic Substitute from Abdominal Wall, Open Approach (ICD-10-PCS; 2020-07-04)
PROC: 0DH67YZ Insertion of Other Device into Stomach, Via Natural or Artificial Opening (ICD-10-PCS; 2020-07-04)
PROC: 30233N1 Transfusion of Nonautologous Red Blood Cells into Peripheral Vein, Percutaneous Approach (ICD-10-PCS; 2020-07-09)
DX: K56.51 Intestinal adhesions [bands], with partial obstruction (principal); E87.4 Mixed disorder of acid-base balance; K91.89 Other postprocedural complications and disorders of digestive system; J98.11 Atelectasis; K91.872 Postprocedural seroma of a digestive system organ or structure following a digestive system procedure; I10 Essential (primary) hypertension; E78.5 Hyperlipidemia, unspecified; I25.10 Atherosclerotic heart disease of native coronary artery without angina pectoris; D72.829 Elevated white blood cell count, unspecified; I48.91 Unspecified atrial fibrillation; E83.52 Hypercalcemia; E03.9 Hypothyroidism, unspecified; Z95.1 Presence of aortocoronary bypass graft; R19.7 Diarrhea, unspecified; Z95.5 Presence of coronary angioplasty implant and graft; Y83.9 Surgical procedure, unspecified as the cause of abnormal reaction of the patient, or of later complication, without mention of misadventure at the time of the procedure
CPT/HCPCS: 36415; 36430; 71045-TC-FY; 74018-TC-FY; 74019-TC-FY; 74177-TC; 76705-TC; 80048; 80053; 81003; 82272; 82550; 83605; 83690; 83735; 83970; 84100; 84443; 84484; 85025; 85027; 85610; 85730; 86850; 86900; 86901; 86922; 87040; 87804; 88304-TC; 93005; 93010; 93970-TC; 94760; 97116-GP; 97162-GP; 99285-25; C9803; J0131; J1644; P9058; Q9967; U0003

== ENCOUNTER 2020-11-15 12:42 | Inpatient (IN) | payer BC, OTHER ==
[2020-11-15 13:37] VITALS: BMI 18.3
[2020-11-15 15:24] LABS: BASO % 1.2 % (0-2.0); EOS % 3.1 % (0-4.5); HEMATOCRIT 39.2 % (32.4-45.2); HEMOGLOBIN 12.8 GM/dL (10.7-15.3); LYMPH % 20.8 % (8-40); MCH 27.5 pg (25.7-33.7); MCHC 32.7 g/dl (32.0-36.0); MEAN PLT VOLUME 7.2 fl (7.5-11.1); MONO % 8.9 % (3.8-10.2); PLATELET COUNT 284 K/MM3 (134-434); RBC 4.67 M/mm3 (3.60-5.2); RDW 19.4 % (11.6-15.6); WHITE BLOOD COUNT 10.1 K/mm3 (4.0-10.0)
[2020-11-15 15:32] LABS: INR 1.02 (0.83-1.09); PROTHROMBIN TIME (PATIENT) 12.5 SEC (9.7-13.0)
[2020-11-15 15:35] LABS: ACTIVATED PTT 29.6 SECONDS (25.2-36.5)
[2020-11-15 15:50] LABS: ALBUMIN 4.1 g/dl (3.4-5.0); BLOOD UREA NITROGEN 50.9 mg/dL (7-18); CALCIUM 10.4 mg/dL (8.5-10.1)
[2020-11-15 15:54] LABS: CREATININE 1.1 mg/dL (0.55-1.3)
[2020-11-15 15:56] LABS: BILIRUBIN,TOTAL 0.5 mg/dL (0.2-1)
[2020-11-15] MEDS ORDERED: ACETAMINOPHEN 500 MG TABLET (FP) PO ONE (16:20)
[2020-11-15] MEDS ORDERED: ACETAMINOPHEN 325 MG TABLET (FP) ONE (16:25)
[2020-11-15 16:40] LABS: ANISOCYTOSIS 2+; MACROCYTOSIS 0; OVALOCYTE 2+; PLATELET ESTIMATE NORMAL
[2020-11-15] MEDS ORDERED: PANTOPRAZOLE SODIUM 40 MG VIAL IVPUSH ONE (21:19)
[2020-11-15] MEDS ORDERED: SODIUM CHLORIDE 1,000 ML IV SCH (21:45)
[2020-11-15] MEDS ORDERED: PANTOPRAZOLE SODIUM 40 MG VIAL ONE (22:31)
[2020-11-15] MEDS ORDERED: MELATONIN 5 MG TABLETS PO ONE (23:37)
[2020-11-16] MEDS ORDERED: ACETAMINOPHEN 325 MG TABLET (FP) ONE (00:01)
[2020-11-16] MEDS: ACETAMINOPHEN 325 MG TABLET (FP) PO PRN ×3 (00:02→20:54)
[2020-11-16] MEDS ORDERED: MELATONIN 5 MG TABLETS ONE (00:44)
[2020-11-16] MEDS ORDERED: PT OWN MED DRAWER 7, Y5N ONE ×2 (09:44→12:22)
[2020-11-16 11:07] LABS: HEMATOCRIT 35.3 % (32.4-45.2); HEMOGLOBIN 11.8 GM/dL (10.7-15.3); MCH 27.9 pg (25.7-33.7); MCHC 33.3 g/dl (32.0-36.0); MEAN CELL VOLUME 83.8 fl (80-96); PLATELET COUNT 238 K/MM3 (134-434); RBC 4.21 M/mm3 (3.60-5.2); RDW 19.7 % (11.6-15.6); WHITE BLOOD COUNT 6.7 K/mm3 (4.0-10.0)
[2020-11-16 11:25] LABS: ALBUMIN 3.4 g/dl (3.4-5.0); BLOOD UREA NITROGEN 31.8 mg/dL (7-18); CALCIUM 9.9 mg/dL (8.5-10.1); MAGNESIUM 2.2 mg/dL (1.8-2.4)
[2020-11-16 11:29] LABS: BILIRUBIN,TOTAL 0.5 mg/dL (0.2-1); CREATININE 0.8 mg/dL (0.55-1.3); PHOSPHOROUS 3.5 mg/dL (2.5-4.9); TOT PROT 5.9 g/dl (6.4-8.2)
[2020-11-16] MEDS ORDERED: ACETAMINOPHEN 1000 MG/100 ML VIAL (NON FORMULARY) IVPB ONE (12:23)
[2020-11-16] MEDS: LEVOTHYROXINE NA 150 MCG TABLET PO SCH (13:08)
[2020-11-16] MEDS: ATORVASTATIN CA 80 MG TABLET (FP) PO SCH (21:02)
[2020-11-17] MEDS: LEVOTHYROXINE NA 150 MCG TABLET PO SCH (06:40)
[2020-11-17] MEDS: ACETAMINOPHEN 325 MG TABLET (FP) PO PRN ×3 (07:57→20:29)
[2020-11-17 08:10] LABS: ALBUMIN 3.4 g/dl (3.4-5.0); BASO % 0.5 % (0-2.0); BLOOD UREA NITROGEN 28.7 mg/dL (7-18); CALCIUM 9.6 mg/dL (8.5-10.1); EOS % 3.8 % (0-4.5); HEMATOCRIT 35.8 % (32.4-45.2); MCH 27.9 pg (25.7-33.7); MCHC 33.4 g/dl (32.0-36.0); MEAN CELL VOLUME 83.6 fl (80-96); MEAN PLT VOLUME 6.9 fl (7.5-11.1); MONO % 9.6 % (3.8-10.2); NEUT % 60.1 % (42.8-82.8); PLATELET COUNT 270 K/MM3 (134-434); RBC 4.28 M/mm3 (3.60-5.2); RDW 19.6 % (11.6-15.6)
[2020-11-17 08:13] LABS: CREATININE 0.8 mg/dL (0.55-1.3)
[2020-11-17 08:15] LABS: BILIRUBIN,TOTAL 0.7 mg/dL (0.2-1); TOT PROT 6.1 g/dl (6.4-8.2)
[2020-11-17] MEDS: VALSARTAN 40 MG TABLET PO SCH (09:53)
[2020-11-17] MEDS ORDERED: PT OWN MED DRAWER 7, Y5N ONE (20:25)
[2020-11-17] MEDS: ATORVASTATIN CA 80 MG TABLET (FP) PO SCH (21:08)
[2020-11-17] MEDS ORDERED: traMADol HCL 50 MG TABLET PO ONE (23:45)
[2020-11-18] MEDS ORDERED: PT OWN MED DRAWER 7, Y5N ONE (06:13)
[2020-11-18] MEDS: LEVOTHYROXINE NA 150 MCG TABLET PO SCH (06:16)
[2020-11-18] MEDS: ACETAMINOPHEN 325 MG TABLET (FP) PO PRN ×2 (06:17→13:01)
[2020-11-18 07:44] LABS: BASO % 0.5 % (0-2.0); EOS % 4.7 % (0-4.5); HEMATOCRIT 35.7 % (32.4-45.2); HEMOGLOBIN 11.8 GM/dL (10.7-15.3); LYMPH % 27.2 % (8-40); MCH 28.1 pg (25.7-33.7); MCHC 33.1 g/dl (32.0-36.0); MEAN CELL VOLUME 85.1 fl (80-96); MEAN PLT VOLUME 6.9 fl (7.5-11.1); MONO % 10.8 % (3.8-10.2); NEUT % 56.8 % (42.8-82.8); PLATELET COUNT 230 K/MM3 (134-434); RBC 4.19 M/mm3 (3.60-5.2); RDW 19.4 % (11.6-15.6); WHITE BLOOD COUNT 6.9 K/mm3 (4.0-10.0)
[2020-11-18 08:10] LABS: ALBUMIN 3.4 g/dl (3.4-5.0); CALCIUM 9.5 mg/dL (8.5-10.1)
[2020-11-18 08:11] LABS: BLOOD UREA NITROGEN 23.5 mg/dL (7-18)
[2020-11-18 08:14] LABS: CREATININE 0.7 mg/dL (0.55-1.3)
[2020-11-18 08:15] LABS: TOT PROT 5.6 g/dl (6.4-8.2)
[2020-11-18] MEDS: VALSARTAN 40 MG TABLET PO SCH (10:26)
[2020-11-18 13:55] VITALS: BP 120/53; PULSE 74; TEMP 97.7
== END 2020-11-18 17:45 | disposition home or self-care (01) | DRG 379 ==
LOC: JER 12:42 → JERBED 21:19 → J7W 11-16 06:46
PROVIDERS: ADMIT Hospitalist; ATTEND Nurse Practitioner Family
DX: K57.91 Diverticulosis of intestine, part unspecified, without perforation or abscess with bleeding (principal); K91.872 Postprocedural seroma of a digestive system organ or structure following a digestive system procedure; K62.5 Hemorrhage of anus and rectum; I25.10 Atherosclerotic heart disease of native coronary artery without angina pectoris; I10 Essential (primary) hypertension; E78.5 Hyperlipidemia, unspecified; E03.9 Hypothyroidism, unspecified; K64.9 Unspecified hemorrhoids; Z95.1 Presence of aortocoronary bypass graft; Z95.5 Presence of coronary angioplasty implant and graft; Y83.9 Surgical procedure, unspecified as the cause of abnormal reaction of the patient, or of later complication, without mention of misadventure at the time of the procedure
CPT/HCPCS: 36415; 74177-TC; 80053; 83605; 83690; 83735; 84100; 85025; 85027; 85610; 85730; 86850; 86900; 86901; 93005; 93010; 97116-GP; 97161-GP; 99285-25; C9803; J0131; Q9967; U0003; U0005

== ENCOUNTER 2021-03-28 11:14 | Emergency (ER) | payer BC, OTHER ==
[2021-03-28 11:21] VITALS: BP 169/65; PULSE 77; TEMP 97.6; BMI 19.7
[2021-03-28] MEDS ORDERED: ACETAMINOPHEN 500 MG TABLET (FP) PO ONE (12:06)
[2021-03-28] MEDS ORDERED: ACETAMINOPHEN 500 MG TABLET (FP) ONE (12:08)
== END 2021-03-28 12:30 | disposition home or self-care (01) ==
LOC: JER 11:14
DX: M25.531 Pain in right wrist (principal)
CPT/HCPCS: 99283-25